=== PATIENT | female | born 1950 | race Caucasian/White ===

== ENCOUNTER 2017-08-26 11:34 | Emergency (ER) | payer MEDICARE ==
--- NOTE | 2017-08-26 11:37 | UC ---
Cardiac HPI - HPI Summary HPI Summary: 67 YEAR OLD FEMALE PRESENTS WITH COMPLAINS OF LEFT CHEST PAIN. - History of Current Complaint Stated Complaint: CHEST PAIN Time Seen by Provider: 08/26/17 11:37 Hx Obtained From: Patient Onset/Duration: Sudden Onset Initial Severity: Moderate Current Severity: Moderate Chest Pain Location: Mid Sternal Aggravating Factor(s): Exertion Alleviating Factor(s): Rest Associated Signs & Symptoms: Positive: Chest Pain - Allergy/Home Medications Allergies/Adverse Reactions: Allergies Allergy/AdvReac Type Severity Reaction Status Date / Time Acetaminophen [From Tylenol] AdvReac GI Upset Verified 08/26/17 11:49 Aspirin AdvReac GI Upset Verified 08/26/17 11:49 Morphine AdvReac Hallucinati Verified 08/26/17 11:49 ons PMH/Surg Hx/FS Hx/Imm Hx Other History Of: Negative For: Anticoagulant Therapy - Surgical History Surgical History: Yes Surgery Procedure, Year, and Place: LUMBAR laminectomy with fusion 1996 - W/ RODS. hysterectomy 1977. tonsillectomy as a child. Rt CARPAL TUNNEL - Family History Known Family History: Positive: None - Social History Alcohol Use: None Substance Use Type: None Smoking Status (MU): Current Some Day Smoker Type: Cigarettes Length of Time of Smoking/Using Tobacco: 50 YRS Have You Smoked in the Last Year: Yes When Did the Patient Quit Smoking/Using Tobacco: 2-3 puffs/day - Immunization History Most Recent Influenza Vaccination: utd Most Recent Tetanus Shot: 2013 Most Recent Pneumonia Vaccination: unknown Review of Systems Constitutional: Negative Skin: Negative Eyes: Negative ENT: Negative Respiratory: Negative Cardiovascular: Chest Pain Gastrointestinal: Negative Genitourinary: Negative Motor: Negative Neurovascular: Negative Musculoskeletal: Negative Neurological: Negative Psychological: Negative All Other Systems Reviewed And Are Negative: Yes Physical Exam Triage Information Reviewed: Yes Eye Exam: Normal ENT Exam: Normal Dental Exam: Normal Neck exam: Normal Neck: Positive: 1 Respiratory Exam: Normal Cardiovascular Exam: Normal Abdominal Exam: Normal Musculoskeletal Exam: Normal Neurological Exam: Normal Psychological Exam: Normal Skin Exam: Normal - Clinical Impression Provider Diagnoses: CHEST PAIN Discharge - Discharge Plan Condition: Stable Disposition: HOME Patient Education Materials: Angina (ED), Chest Pain (ED) Referrals: Hermelindo Juan [Primary Care Provider] - Additional Instructions: PATIENT SUGGESTED TO GO TO ER TO RULE OUT CA. PATIENT WILL DRIVE AND SIGN OUT AMA.
[2017-08-26 11:49] VITALS: BP 150/80
== END 2017-08-26 11:55 | disposition home or self-care (01) ==
LOC: UCEAST 11:34
DX: R07.9 Chest pain, unspecified (principal); Z88.6 Allergy status to analgesic agent; F17.210 Nicotine dependence, cigarettes, uncomplicated
CPT/HCPCS: 93005; 99212; G0463

== ENCOUNTER 2017-08-26 12:22 | Emergency (ER) | payer MEDICARE ==
[2017-08-26 12:28] VITALS: BP 165/92
--- NOTE | 2017-08-26 17:26 | ED ---
Diana Gaxiola SooYoung, scribed for Pedro Worley MD on 08/26/17 at 1252 . HPI Chest Pain - HPI Summary HPI Summary: A 67 y/o F presents to ED referred from [facility] with c/o mid-sternal CP onset this AM around approx 1000. CP described as tightness and woke her from sleep. She states the intensity has decreased since onset and is no longer constant. Associated sx: nausea last night since resolved. Denies SOB, diaphoresis. No prev episodes of similar CP. No aggravating factors. She notes recently breaking two ribs recently that are healing. Longtime, heavy smoker. She is scheduled to see Dr. Paul tomorrow. - History of Current Complaint Chief Complaint: EDChestPainROMI Time Seen by Provider: 08/26/17 12:37 Hx Obtained From: Patient, Family/Environmental Health Technician Onset/Duration: Still Present - but improved Timing: Constant - at onset, Intermittent - currently Current Severity: Mild Pain Intensity: 2 Pain Scale Used: 0-10 Numeric Chest Pain Location: Mid Sternal Character: Tightness Aggravating Factor(s): Nothing Associated Signs and Symptoms: Positive: Nausea. Negative: Shortness of Breath , Diaphoresis - Additional Pertinent History Primary Care Physician: [id number] - Allergy/Home Medications Allergies/Adverse Reactions: Allergies Allergy/AdvReac Type Severity Reaction Status Date / Time Acetaminophen [From Tylenol] AdvReac GI Upset Verified 08/26/17 11:49 Aspirin AdvReac GI Upset Verified 08/26/17 11:49 Morphine AdvReac Hallucinati Verified 08/26/17 11:49 ons PMH/Surg Hx/FS Hx/Imm Hx Previously Healthy: No Endocrine/Hematology History: Reports: Hx Diabetes - INSULIN DEPENDENT Denies: Hx Anticoagulant Therapy, Hx Thyroid Disease Cardiovascular History: Reports: Hx Angina - denies CP at present, Hx Hypertension - ON MEDS Denies: Hx Coronary Artery Disease, Hx Hypercholesterolemia, Hx Myocardial Infarction, Hx Pacemaker/ICD, Hx Valvular Heart Disease - but pt states she has a heart murmur Respiratory History: Reports: Hx Seasonal Allergies, Hx Sleep Apnea - NO CPAP Denies: Hx Asthma, Hx Chronic Obstructive Pulmonary Disease (COPD) GI History: Reports: Hx Irritable Bowel - undiagnosed, Hx Ulcer - HX OF PER PT History: Denies: Hx Renal Disease Musculoskeletal History: Reports: Hx Arthritis, Hx Rheumatoid Arthritis - recent diagnosis, Hx Back Problems, Hx Osteoporosis, Other Musculoskeletal History - SPINA BIFIDA- CERVICAL, S/P LUMER LAMI WITH FUSION 1996 Sensory History: Reports: Hx Contacts or Glasses - GLASSES Denies: Hx Hearing Aid Opthamlomology History: Reports: Hx Contacts or Glasses - GLASSES Neurological History: Reports: Hx Headaches Psychiatric History: Reports: Hx Anxiety, Hx Depression Denies: Hx Panic Disorder - Surgical History Surgery Procedure, Year, and Place: LUMBAR laminectomy with fusion 1996 - W/ RODS. hysterectomy 1977. tonsillectomy as a child. Rt CARPAL TUNNEL Hx Anesthesia Reactions: No Infectious Disease History: No Infectious Disease History: Denies: Hx Clostridium Difficile, Hx Hepatitis, Hx Human Immunodeficiency Virus (HIV), Hx Shingles, Hx Tuberculosis, Traveled Outside the in Last 30 Days - Family History Known Family History: Positive: Cardiac Disease - Social History Occupation: Unemployed - HOMEMAKER Lives: With Family Alcohol Use: None Hx Substance Use: No Substance Use Type: Reports: None Hx Tobacco Use: Yes Smoking Status (MU): Heavy Every Day Tobacco Smoker Type: Cigarettes Amount Used/How Often: 1 1/2 pk/day Length of Time of Smoking/Using Tobacco: 50 YRS Have You Smoked in the Last Year: Yes Review of Systems Negative: Skin Diaphoresis Positive: Chest Pain Negative: Shortness Of Breath Positive: Nausea All Other Systems Reviewed And Are Negative: Yes Physical Exam Triage Information Reviewed: Yes Vital Signs On Initial Exam: Initial Vitals Temp Pulse Resp BP Pulse Ox 97.6 F 90 16 165/92 97 08/26/17 12:24 08/26/17 12:24 08/26/17 12:24 08/26/17 12:24 08/26/17 12:24 Vital Signs Reviewed: Yes Appearance: Positive: Well-Appearing, No Pain Distress Skin: Positive: Warm, Skin Color Reflects Adequate Perfusion, Dry Head/Face: Positive: Normal Head/Face Inspection Eyes: Positive: Normal ENT: Positive: Normal ENT inspection Neck: Positive: Supple, Nontender Respiratory/Lung Sounds: Positive: Clear to Auscultation, Breath Sounds Present. Negative: Wheezes Cardiovascular: Positive: RRR Abdomen Description: Positive: Nontender, Soft Bowel Sounds: Positive: Present Musculoskeletal: Positive: Normal Neurological: Positive: Normal Psychiatric: Positive: Affect/Mood Appropriate Diagnostics - Vital Signs Vital Signs Temp Pulse Resp BP Pulse Ox 08/26/17 12:24 97.6 F 90 16 165/92 97 - Laboratory Lab Statement: Any lab studies that have been ordered have been reviewed, and results considered in the medical decision making process. Chest Pain Course/Dx - Course Course Of Treatment: Ms. Parham was awakened by a mid chest pain this AM about 1000. It has nearly completely resolved on arrival. She had an angry impatient affect from the outset and I recommended a CP workup. At first she agreed but soon after I left the room, she announced that she was leaving and did so abruptly. - Diagnoses Provider Diagnoses: Chest pain Discharge - Discharge Plan Condition: Stable Disposition: ADMITTED TO [facility] Patient Education Materials: Chest Pain (ED) Referrals: Natali HAGEN,Hermelindo Montano [Primary Care Provider] - Additional Instructions: Follow up with Dr. Paul as scheduled tomorrow. Please return to the ED if you experience new or worsening symptoms or decide you want your CP evaluated. The documentation as recorded by the Diana fry SooYoung accurately reflects the service I personally performed and the decisions made by me, Pedro Worley MD.
== END 2017-08-26 13:05 | disposition short-term general hospital (02) ==
LOC: ED 12:22
DX: R07.9 Chest pain, unspecified (principal); E11.8 Type 2 diabetes mellitus with unspecified complications; Z79.4 Long term (current) use of insulin; I10 Essential (primary) hypertension; I20.9 Angina pectoris, unspecified; Q05.9 Spina bifida, unspecified; M06.9 Rheumatoid arthritis, unspecified; F32.9 Major depressive disorder, single episode, unspecified; F41.9 Anxiety disorder, unspecified; F17.210 Nicotine dependence, cigarettes, uncomplicated
CPT/HCPCS: 99281

== ENCOUNTER 2018-01-08 14:11 | Emergency (ER) | payer SELFPAY ==
[2018-01-08 14:49] VITALS: BP 133/67
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
== END 2018-01-08 17:40 | disposition home or self-care (01) ==
LOC: UCEAST 14:11
DX: S16.1XXA Strain of muscle, fascia and tendon at neck level, initial encounter (principal); S10.91XA Abrasion of unspecified part of neck, initial encounter; V43.52XA Car driver injured in collision with other type car in traffic accident, initial encounter; Y93.89 Activity, other specified; Y92.410 Unspecified street and highway as the place of occurrence of the external cause; E78.5 Hyperlipidemia, unspecified; I10 Essential (primary) hypertension; Z88.6 Allergy status to analgesic agent; Z88.5 Allergy status to narcotic agent; F17.210 Nicotine dependence, cigarettes, uncomplicated
CPT/HCPCS: 99212; G0463

== ENCOUNTER 2018-09-09 06:20 | Emergency (ER) | payer MEDICARE ==
[2018-09-09] MEDS ORDERED: NS 0.9% 1000 ML* 1,000 ML IV ONE (06:32)
--- NOTE | 2018-09-09 06:35 | ED ---
Neurological HPI - HPI Summary HPI Summary: Patient is a 68 y/o F BIBA w/ stroke Sx. Provider to evaluate patient immediately upon arrival at 0620. EMS reports that patient woke up at 0330 today screaming and complaining of severe POSADA. Vomiting is denied. EMS reported that patient was uncooperative during the ambulance ride and refused IV access. They also note that patient had slurred speech which has improved in the ED. EMS does not have medications list of patient. Patient states that she feels tired. PMHx of TIA. Allergies are reviewed. - History of Current Complaint Stated Complaint: STROKE LIKE SYMPTOMS Time Seen by Provider: 09/09/18 06:25 Hx Obtained From: Patient Onset/Duration: Started hours ago - onset 0330, Still Present Timing: Constant Onset Severity: Severe Current Severity: Severe Aggravating: Nothing Alleviating: Nothing Associated Signs and Symptoms: Positive: Headache, Confusion, Agitation, Impaired Speech - has gotten better in ED per EMS - Additional Pertinent History Primary Care Physician: MARIANNA - Allergy/Home Medications Allergies/Adverse Reactions: Allergies Allergy/AdvReac Type Severity Reaction Status Date / Time morphine Allergy Headache Verified 01/08/18 14:40 acetaminophen AdvReac GI Upset Verified 01/08/18 14:40 aspirin AdvReac GI Upset Verified 01/08/18 14:40 PMH/Surg Hx/FS Hx/Imm Hx Endocrine/Hematology History: Reports: Hx Diabetes - INSULIN DEPENDENT Denies: Hx Anticoagulant Therapy, Hx Thyroid Disease Cardiovascular History: Reports: Hx Angina - denies CP at present, Hx Hypertension - ON MEDS Denies: Hx Coronary Artery Disease, Hx Hypercholesterolemia, Hx Myocardial Infarction, Hx Pacemaker/ICD, Hx Valvular Heart Disease - but pt states she has a heart murmur Respiratory History: Reports: Hx Seasonal Allergies, Hx Sleep Apnea - NO CPAP Denies: Hx Asthma, Hx Chronic Obstructive Pulmonary Disease (COPD) GI History: Reports: Hx Irritable Bowel - undiagnosed, Hx Ulcer - HX OF PER PT History: Denies: Hx Renal Disease Musculoskeletal History: Reports: Hx Arthritis, Hx Rheumatoid Arthritis - recent diagnosis, Hx Back Problems, Hx Osteoporosis, Other Musculoskeletal History - SPINA BIFIDA- CERVICAL, S/P LUMER LAMI WITH FUSION 1996 Sensory History: Reports: Hx Contacts or Glasses - GLASSES Denies: Hx Hearing Aid Opthamlomology History: Reports: Hx Contacts or Glasses - GLASSES Neurological History: Reports: Hx Headaches Psychiatric History: Reports: Hx Anxiety, Hx Depression Denies: Hx Panic Disorder - Surgical History Surgery Procedure, Year, and Place: LUMBAR laminectomy with fusion 1996 - W/ RODS. hysterectomy 1977. tonsillectomy as a child. Rt CARPAL TUNNEL Hx Anesthesia Reactions: No Infectious Disease History: Denies: Hx Clostridium Difficile, Hx Hepatitis, Hx Human Immunodeficiency Virus (HIV), Hx Shingles, Hx Tuberculosis - Family History Known Family History: Positive: Cardiac Disease - Social History Alcohol Use: None Hx Substance Use: No Substance Use Type: Reports: Prescribed Hx Tobacco Use: Yes Smoking Status (MU): Heavy Every Day Tobacco Smoker Type: Cigarettes Amount Used/How Often: 1 pk/day Length of Time of Smoking/Using Tobacco: 50 YRS Have You Smoked in the Last Year: Yes Review of Systems Positive: Headache, Slurred Speech - reported to have improved in ED Psychological: Other - confusion, agitation All Other Systems Reviewed And Are Negative: Yes Physical Exam - Summary Physical Exam Summary: VITAL SIGNS: Reviewed. GENERAL: Patient is a well-developed and nourished female who is lying comfortable in the stretcher. Patient is not in any acute respiratory distress. HEAD AND FACE: No signs of trauma. No ecchymosis, hematomas or skull depressions. No sinus tenderness. EYES: PERRLA, EOMI x 2, No injected conjunctiva, no nystagmus. EARS: Hearing grossly intact. Ear canals and tympanic membranes are within normal limits. MOUTH: Oropharynx within normal limits. NECK: Supple, trachea is midline, no adenopathy, no JVD, no carotid bruit, no c- spine tenderness, neck with full ROM. CHEST: Symmetric, no tenderness at palpation LUNGS: Clear to auscultation bilaterally. No wheezing or crackles. CVS: Regular rate and rhythm, S1 and S2 present, no murmurs or gallops appreciated. ABDOMEN: Soft, non-tender. No signs of distention. No rebound no guarding, and no masses palpated. Bowel sounds are normal. EXTREMITIES: FROM in all major joints, no edema, no cyanosis or clubbing. NEURO: Patient is alert to her name but disoriented, follows commands. GCS 15. NIH 2 SKIN: Dry and warm Triage Information Reviewed: Yes Vital Signs Reviewed: Yes Diagnostics - Laboratory Lab Statement: Any lab studies that have been ordered have been reviewed, and results considered in the medical decision making process. - CT brain ct CT Interpretation: No Acute Changes CT Interpretation Completed By: Radiologist - IMPRESSION: Study is degraded by motion artifact. What is seen of the brain parenchyma shows no intraparenchymal hemorrhage. No intracranial mass or obstructive hydrocephalus. Suggest repeating the head CT when the patient is able to hold still. This report was reviewed by ed physician. NIH Scale - NIH Scale Level of Consciousness: Alert/Keenly Responsive Ask Patient the Month and His/Her Age: Neither Correct/Aphasic Ask Pt to Open/Close Eyes and Rn Telehealth/Release Non-Paretic Hand: Both Correctly Best Gaze (Only Horizontal Eye Movement): Normal Visual Field Testing: No Visual Loss Facial Paresis-Pt to Smile & Close Eyes or Grimace Symmetry: Normal/Symmetrical Motor Function - Right Arm: No Drift-Holds 10 Seconds Motor Function - Left Arm: No Drift-Holds 10 Seconds Motor Function - Right Leg: No Drift-Holds 10 Seconds Motor Function - Left Leg: No Drift-Holds 10 Seconds Limb Ataxia-Must be out of Proportion to Weakness Present: Absent Sensory (Use Pinprick to Test Arms/Legs/Trunk/Face): Normal Best Language (Describe Picture, Name Items): No Aphasia Dysarthria (Read Several Words): Normal Extinction and Inattention: No Abnormality - patient seems to be agitated, patient knows her name, not answering other questions, however she is able to verbalize but I'm not able to understand and words. Total Score: 2 Re-Evaluation - Re-Evaluation First Eval Re-Evaluation Time: 06:35 Comment: Patient vomited in CT scan. CT shows no acute bleeding. Patient was capable of ambulating. Second Eval Re-Evaluation Time: 06:45 Comment: Patient's family member reports TIA two years ago, another episode in june. Since then, patient has had depression. Sleeps 20+ hours a day, is volatile, arguementive, paranoid. Family reports she was fine last night between [id number]. Patient and patients were reluctant to call ambulance. Course/Dx - Course Course Of Treatment: Patient is a 68 y/o F BIBA w/ stroke Sx. Provider to evaluate patient immediately upon arrival at 0620. EMS reports that patient woke up at 0330 today screaming and complaining of severe POSADA. Vomiting is denied. EMS reported that patient was uncooperative during the ambulance ride and refused IV access. They also note that patient had slurred speech which has improved in the ED. EMS does not have medications list of patient. Patient states that she feels tired. PMHx of TIA. Physical exam showed Patient is alert to her name but disoriented, follows commands. GCS 15. NIH 2. Brain CT showed IMPRESSION: Study is degraded by motion artifact. What is seen of the brain parenchyma shows no intraparenchymal hemorrhage. No intracranial mass or obstructive hydrocephalus. Suggest repeating the head CT when the patient is able to hold still. This report was reviewed by ed physician. 0635 - Patient vomited in CT scan. CT shows no acute bleeding. Patient was capable of ambulating. 0645 - Patient's family member reports TIA two years ago, another episode in june. Since then, patient has had depression. Sleeps 20+ hours a day, is volatile, arguementive, paranoid. Family reports she was fine last night between [id number]. Patient and patients were reluctant to call ambulance. Patient's case was discussed with Dr. Ennis at 0649. He states that patient's Sx appears to be more behavioral as opposed to stroke but still recommends CTA, MRI, and bloodwork. Patient will be signed out to Dr. Olivares pending further workup. Dx of headache, confusion. - Diagnoses Provider Diagnoses: Confusion, Headache During the Visit The Following Alert/Code Occurred: Code [place] - 0623 called - Physician Notifications Discussed Care Of Patient With: Larry Ennis Time Discussed With Above Provider: 06:49 Instructed by Provider To: Other - Patient's case was discussed with Dr. Ennis at 0649. He states that patient's Sx appears to be more behavioral as opposed to stroke but still recommends CTA, MRI, and bloodwork Discharge - Sign-Out/Discharge Documenting (check all that apply): Sign-Out Patient Signing out patient TO: Ketan Olivares Receiving patient FROM: Lisseth Pack - Discharge Plan Referrals: Hermelindo Juan [Primary Care Provider] - - Attestation Statements Document Initiated by Scribe: Yes Documenting Scribe: Irwin Berry Provider For Whom Scribe is Documenting (Include Credential): Lisseth Pack MD Scribe Attestation: Irwin Gaxiola , scribed for Lisseth Pack MD on 09/09/18 at 0703.
[2018-09-09] MEDS ORDERED: Ondansetron INJ* 2 MG/ML VIAL IV ONE (06:38)
[2018-09-09] MEDS ORDERED: Morphine INJ* 4 MG/ML 1 ML SYRINGE (NEW SYRINGE VERSION) IV ONE (06:38)
--- NOTE | 2018-09-09 06:40 | RAD ---
EXAM: CT Head Without Intravenous Contrast CLINICAL HISTORY: 68 years old, female; Signs and symptoms; Altered mental status/memory loss; Patient HX: Best images possible pt unable to hold still; Additional info: H/a TECHNIQUE: Axial computed tomography images of the head/brain without intravenous contrast. All CT scans at this facility use at least one of these dose optimization techniques: automated exposure control; mA and/or kV adjustment per patient size (includes targeted exams where dose is matched to clinical indication); or iterative reconstruction. COMPARISON: BRAIN WO CT BRAIN WO 01/22/2016 5:32 PM FINDINGS: Brain: Unremarkable. No hemorrhage. No significant white matter disease. No edema. Ventricles: No obvious intracranial hemorrhage. No intracranial mass or mass effect. No obstructive hydrocephalus. Bones/joints: Unremarkable. No acute fracture. Soft tissues: Unremarkable. Sinuses: Unremarkable as visualized. No acute sinusitis. Mastoid air cells: Unremarkable as visualized. No mastoid effusion. Other findings: Study is degraded by motion. IMPRESSION: Study is degraded by motion artifact. What is seen of the brain parenchyma shows no intraparenchymal hemorrhage. No intracranial mass or obstructive hydrocephalus. Suggest repeating the head CT when the patient is able to hold still. To contact [facility] with a general question: [facility] - [phone] For direct physician to physician contact: Physician Hotline - [phone] [facility] ([facility] Facility ID #[id number])
[2018-09-09 07:02] LABS: ABS Basophils 0.1 10^3/ul (0-0.2); ABS Eosinophils 0 10^3/ul (0-0.6); ABS Lymphocytes 2.9 10^3/ul (1.0-4.8); ABS Monocytes 0.6 10^3/ul (0-0.8); ABS Neutrophils 11.7 10^3/ul (1.5-7.7); ABS Nucleated RBC 0 10^3/ul; Eosinophil % 0.3 % (0-6); Hematocrit 42 % (35-47); Hemoglobin 14.2 g/dl (12.0-16.0); Lymphocyte % 18.9 % (25-47); Mean Corpuscular HGB Conc 34 g/dl (31-36); Mean Corpuscular Hemoglobin 30 pg (27-31); Mean Corpuscular Volume 89 fL (80-97); Mean Platelet Volume 7.1 um3 (7.4-10.4); Nucleated Red Blood Cells % 0.1; Platelet Count 357 10^3/ul (150-450); Red Cell Distribution Width 13 % (10.5-15); White Blood Count 15.3 10^3/ul (3.5-10.8)
[2018-09-09 07:20] LABS: EGFR Non-African American 66.3 (>60)
[2018-09-09 07:21] LABS: INR 0.89 (0.77-1.02)
[2018-09-09] MEDS ORDERED: Iodixanol* (CONTRAST) 320 MG/ML 100 ML SDV IV ONE (07:35)
--- NOTE | 2018-09-09 07:42 | RAD ---
HISTORY: Neurological Changes/Code [place] COMPARISONS: January 22, 2016 VIEWS: 1: frontal AP view of the chest at 7:18 AM. The right costophrenic angle is cut off. FINDINGS: LINES AND TUBES: None. CARDIOMEDIASTINAL SILHOUETTE: The cardiomediastinal silhouette is normal for portable technique. PLEURA: The left costophrenic angle is sharp. LUNG PARENCHYMA: The visualized lungs are clear. ABDOMEN: The upper abdomen is clear. There is no subphrenic gas. BONES AND SOFT TISSUES: No bone or soft tissue abnormalities are noted. IMPRESSION: LIMITED STUDY. NO ACTIVE CARDIOPULMONARY DISEASE.
--- NOTE | 2018-09-09 08:05 | ED ---
Progress - Progress Note Progress Note: This patient was signed out from Dr. Pack on shift change. On exam the woman is speaking in intelligible sentences. She does not respond appropriately when asked her age or the month. She has expressive aphasia and is combative. There is a emperatriz of her speak and there is rhyming. The nurse spoke to her daughter who has since left and she stated there was a situation like this in june and the pt was taken to [facility]. There was concern for a possible CVA but apparently there was nothing abnormal found, the nurse states the daughter stated it was dx as new onset bipolar. Since this episode in june of this year the patient has been combative per daughter and agitated. Along with this the nurse states the daughter was a poor historian and stated her mother has never had a CVA but has had a thrombectomy in the past, which appears to be contradictory. Appearance: Well appearing, no pain distress Skin: warm, dry, reflects adequate perfusion Head/face: normal Eyes: EOMI, LETTY ENT: mucous membranes moist Neck: supple, non-tender Respiratory: CTA, breath sounds present Cardiovascular: RRR, pulses symmetrical Abdomen: non-tender, soft Bowel Sounds: present Musculoskeletal: normal, strength/ROM intact Neuro: Verbal with clear speech it is difficult to tell if she has aphasia or she is not cooperating. She answers level of consciousness questions with non nonsensical rhyming words. She will say I dont know CXR reveals, per radiology, LIMITED STUDY. NO ACTIVE CARDIOPULMONARY DISEASE. Dr. Olivares has reviewed this report. Re-Evaluation - Re-Evaluation First Eval Re-Evaluation Time: 09:16 Comment: Patient is 200/110 on manual BP. Course/Dx - Course Course Of Treatment: This patient was signed out from Dr. Pack on shift change. On exam the woman is speaking in intelligible sentences. She does not respond appropriately when asked her age or the month. She has expressive aphasia and is combative. There is a emperatriz of her speak and there is rhyming. The nurse spoke to her daughter who has since left and she stated there was a situation like this in june and the pt was taken to [facility]. There was concern for a possible CVA but apparently there was nothing abnormal found, the nurse states the daughter stated it was dx as new onset bipolar. Along with this the nurse states the daughter was a poor historian and stated her mother has never had a CVA but has had a thrombectomy in the past, which appears to be contradictory. I discussed patient care with Dr. Vegas and he will come see the patient in the ED. 0844 I discussed patient care with Dr. Chao who has accepted the patient for admission. The patient required treatment of delirium in order to expedite her imaging studies. Ketamine 1 mg/kg was given. This produced a calming effect with able sedation of her vital signs. Neurology feels as though lumbar puncture is not warranted at this time. The leukocytosis is chronic. She's had similar presentations in the past there is feeling that this may be toxic, metabolic or even withdrawal related. - Diagnoses Provider Diagnoses: Encephalopathy, Leukocytosis During the Visit The Following Alert/Code Occurred: Code [place] - 0623 called - Provider Notifications Discussed Care Of Patient With: Amarjit Sargent Time Discussed With Above Provider: 08:04 Instructed by Provider To: Other - I discussed patient care with Dr. Vegas and he will come see the patient in the ED 0844 I discussed patient care with Dr. Chao who has accepted the patient for admission. - Critical Care Time Critical Care Time: 75-104 min - CCT is EXCLUSIVE of separately billable procedures. Discharge - Sign-Out/Discharge Documenting (check all that apply): Patient Departure - admitted , Receiving Sign-Out [facility]charge Plan Condition: Fair Disposition: ADMITTED TO [facility] - Billing Disposition and Condition Condition: FAIR Disposition: Admitted to [facility] - Attestation Statements Document Initiated by Scribe: Yes Documenting Scribe: Mookie Yañez Provider For Whom Abdone is Documenting (Include Credential): Ketan Olivares MD Scribe Attestation: Mookie Gaxiola, scribed for Ketan Olivares MD on 09/09/18 at 1032. Scribe Documentation Reviewed: Yes Provider Attestation: The documentation as recorded by the Mookie fry accurately reflects the service I personally performed and the decisions made by me, Ketan Olivares MD NIH Scale - NIH Scale Level of Consciousness: Alert/Keenly Responsive Ask Patient the Month and His/Her Age: Neither Correct/Aphasic Ask Pt to Open/Close Eyes and Road Gang Supervisor/Release Non-Paretic Hand: Both Correctly Best Gaze (Only Horizontal Eye Movement): Normal Visual Field Testing: No Visual Loss Facial Paresis-Pt to Smile & Close Eyes or Grimace Symmetry: Normal/Symmetrical Motor Function - Right Arm: No Drift-Holds 10 Seconds Motor Function - Left Arm: No Drift-Holds 10 Seconds Motor Function - Right Leg: No Drift-Holds 10 Seconds Motor Function - Left Leg: No Drift-Holds 10 Seconds Limb Ataxia-Must be out of Proportion to Weakness Present: Absent Sensory (Use Pinprick to Test Arms/Legs/Trunk/Face): Normal Best Language (Describe Picture, Name Items): Severe Aphasia Dysarthria (Read Several Words): Normal Extinction and Inattention: No Abnormality Total Score: 4
[2018-09-09] MEDS ORDERED: Metoclopramide IV* 5 MG/ML 2 ML VIAL IV ONE (09:13)
[2018-09-09] MEDS ORDERED: Ketorolac INJ* 30 MG/ML 1 ML VIAL IV PUSH ONE (09:13)
[2018-09-09] MEDS ORDERED: KETAMINE HCL* 50 MG/ML 10 ML VIAL IV ONE (09:22)
[2018-09-09] MEDS ORDERED: Haloperidol INJ IV/IM* 5 MG/ML AMP IV SLOW PU PRN (09:37)
[2018-09-09] MEDS ORDERED: NS 0.9% 1000 ML* 1,000 ML IV SCH (09:45)
[2018-09-09] MEDS ORDERED: busPIRone TAB* 10 MG PO PRN (09:45)
[2018-09-09] MEDS ORDERED: hydrALAZINE IV* 20 MG/ML VIAL IV SLOW PU PRN (09:46)
[2018-09-09] MEDS ORDERED: Dextrose 50% Syringe 50 ML* 25 GM/50 ML SYRINGE IV PUSH PRN (10:16)
--- NOTE | 2018-09-09 11:21 | RAD ---
HISTORY: CVA COMPARISONS: January 24, 2016, head CT dated September 09, 2018 TECHNIQUE: Multiple contiguous axial CT scans were obtained of the head and neck after the administration of nonionic intravenous contrast timed to the systemic arterial phase of contrast enhancement. Coronal and sagittal multiplanar reformations are submitted for review. Multiple 3-D maximum intensity projection reconstructions are also submitted for review. FINDINGS: CTA NECK: AORTIC ARCH: There is a normal three-vessel branching pattern of the aortic arch. There is no ostial or proximal stenosis of the cephalic great vessels. RIGHT VERTEBRAL ARTERY: The right vertebral artery is patent along its course, without stenosis. LEFT VERTEBRAL ARTERY: The left vertebral artery is patent along its course, without stenosis. DOMINANCE: The left vertebral artery is dominant. RIGHT COMMON CAROTID ARTERY: The right common carotid artery is patent. The right carotid bifurcation occurs at C3-C4 RIGHT INTERNAL CAROTID ARTERY: There is atheromatous disease of the right carotid bifurcation, without right internal carotid artery stenosis by NASCET criteria. RIGHT EXTERNAL CAROTID ARTERY: The right external carotid artery is unremarkable. LEFT COMMON CAROTID ARTERY: The left common carotid artery is patent. The left carotid bifurcation occurs at C4 LEFT INTERNAL CAROTID ARTERY: There is atheromatous disease of the left carotid bifurcation, without left internal carotid artery stenosis by NASCET criteria. LEFT EXTERNAL CAROTID ARTERY: The left external carotid artery is unremarkable. VENOUS CIRCULATION: The venous system is unremarkable. SALIVARY GLANDS: The parotid glands, submandibular glands, sublingual glands are normal. NASAL CAVITY/NASOPHARYNX: The nasal cavity and nasopharynx are normal. ORAL CAVITY/OROPHARYNX: The oral cavity and oropharynx are unremarkable. LARYNGEAL APPARATUS/HYPOPHARYNX: The laryngeal apparatus and hypopharynx are normal. UPPER AIRWAY/UPPER ESOPHAGUS: The visualized upper airway and esophagus are normal. LUNG APICES: The lung apices are clear. THYROID GLAND: The thyroid gland is normal. LYMPH NODES: There is no lymphadenopathy by size criteria. BONES AND SOFT TISSUES: No bone or soft tissue abnormalities are noted. CTA HEAD: INTRACRANIAL CIRCULATION: There is enhancement within M3 branches within the left temporal and parietal hematoma suggestive of a more proximal occlusion with reconstitution, though the occluded segment is not clearly identifiable. The left posterior cerebral artery and its major branches appear patent. Elsewhere, there is no aneurysm, vascular malformation, occlusion, or stenosis of the visualized intracranial circulation. The anterior communicating artery complex is clear. There is a origin of the left posterior cerebral artery. VENOUS CIRCULATION: The venous system is unremarkable. PERFUSION: There is hypoperfusion of the left parietal temporal lobes with reconstitution of vessels with reconstitution of the M3 branches noted within the hematoma. HEMORRHAGE/INFARCT: There is been interval development of an area of hypoattenuation consistent with a parenchymal hematoma within the left parietal and temporal lobes measuring approximately 6 x 3.4 cm transversely and 8.2 cm in cranial caudal dimension. There is probable extension to the left lateral ventricle. There is a fluid fluid level.. Elsewhere, there is no hemorrhage or acute infarct. MASSES/SHIFT: There is subfalcine shift to the right of approximately 1 cm.. There is partial effacement of the basal cisterns. EXTRA-AXIAL SPACES: There are no extra-axial fluid collections. SULCI AND VENTRICLES: As noted above, there is probable extension of the left parenchymal hematoma to the left lateral ventricle. There is no significant ventriculomegaly. CEREBRUM: As noted above, there is a large parenchymal hematoma of the left parietal and temporal lobes. There is associated vasogenic edema. BRAINSTEM: There are no focal parenchymal abnormalities. CEREBELLUM: There are no focal parenchymal abnormalities. PARANASAL SINUSES: The paranasal sinuses are clear. ORBITS: The orbits are unremarkable. BONES AND SOFT TISSUE: No bone or soft tissue abnormalities are noted. OTHER: There is no abnormal enhancement. IMPRESSION: 1. THERE IS A LARGE INTRAPARENCHYMAL HEMATOMA OF THE LEFT PARIETAL AND TEMPORAL LOBES WITH SUBFALCINE SHIFT TO THE RIGHT AND PARTIAL EFFACEMENT OF THE BASAL CISTERNS. 2. THERE ARE RECONSTITUTED VESSELS NOTED WITHIN THE AREA OF HEMATOMA WITH ASSOCIATED HYPOPERFUSION OF THE TERRITORY, THIS SUGGESTS THAT THIS IS HEMORRHAGIC CONVERSION OF AN INFARCT. THERE IS NO APPRECIABLE ANEURYSM OR VASCULAR FORMATION, THOUGH SMALL VASCULAR LESIONS MAY BE OBSCURED BY MASS EFFECT FROM THE HEMATOMA. 3. ATHEROMATOUS DISEASE. 4. NO INTERNAL CAROTID ARTERY STENOSIS BY NASCET CRITERIA. PRELIMINARY FINDINGS WERE DISCUSSED WITH DR. WEBER AT APPROXIMATELY 11:10 AM ON SEPTEMBER 09, 2018 . CPT II Codes: 3100F
[2018-09-09] MEDS ORDERED: Insulin LISPRO* 1 UNITS UNIT SUBCUT SCH (11:30)
[2018-09-09] MEDS ORDERED: Propofol* 200 ML ONE (11:31)
[2018-09-09] MEDS ORDERED: NICARDIPINE 0.1 MG/ML IV ONE (11:31)
[2018-09-09] MEDS ORDERED: IVPREMIX IV ONE (11:31)
[2018-09-09] MEDS ORDERED: Rocuronium* 10 MG/ML VIAL IV ONE (11:37)
[2018-09-09] MEDS ORDERED: Rocuronium* 10 MG/ML VIAL ONE (11:37)
--- NOTE | 2018-09-09 11:47 | PN ---
Progress Note - Progress Note Date of Service: 09/09/18 Note: Since I did the initial H&P the patient had a CTA head that shows a large intraparancheymal hemorrhage with mass effect. Dr. Olivares in the process of intubating the patient and air lifting her to [place].
[2018-09-09] MEDS ORDERED: niCARdipine 0.1MG/ML IVPREMIX* 20 MG/200 ML BAG IV SCH (12:00)
[2018-09-09] MEDS ORDERED: Propofol* 500 MG/50 ML BTL IV SCH (12:00)
[2018-09-09] MEDS ORDERED: Propofol* 100 ML IV SCH (12:06)
[2018-09-09] MEDS ORDERED: HYDROmorphone INJ* 1 MG/ML CARPUJECT SYRINGE IV SLOW PU ONE (12:26)
[2018-09-09] MEDS ORDERED: Mannitol 25% (12.5 GM) 50 ML* 12.5 GM/50 ML VIAL IV ONE (12:26)
--- NOTE | 2018-09-09 12:26 | RAD ---
INDICATION: Intubation. COMPARISON: Comparison is made with prior study of the same date from approximately 4 hours earlier. TECHNIQUE: A portable view of the chest was obtained. FINDINGS: The patient is status post intubation. The endotracheal tube projects over the midline approximately 2 cm above the mello. There is a nasogastric tube present which demonstrates normal course. The heart is within normal limits in size. The lungs are clear. No pleural effusion is seen. IMPRESSION: STATUS POST INTUBATION AND NASOGASTRIC TUBE PLACEMENT.
[2018-09-09] MEDS ORDERED: HYDROmorphone INJ1* 1 MG/ML SYRINGE ONE (12:34)
[2018-09-09] MEDS ORDERED: HYDROmorphone INJ1* 1 MG/ML SYRINGE IV SLOW PU ONE (12:36)
[2018-09-09] MEDS ORDERED: Sodium Chloride 3% HYPERTONIC* 500 ML IVPB ONE (12:45)
--- NOTE | 2018-09-09 12:47 | CONS ---
ADDENDUM NOW INCLUDED ON THIS REPORT CONSULTATION REPORT: DATE OF CONSULT: 09/09/18 LOCATION: She is in the emergency room. REFERRING PHYSICIAN: Dr. Olivares. REASON FOR CONSULT: Chief complaint: Headache and confusion. HISTORY OF PRESENT ILLNESS: Pebbles Parham is a 68-year-old woman brought in to the emergency room early this morning with change in mental status and complaints of headache. History is from Dr. Liriano, who received sign out from Dr. Pack. There are no other family members or sources of information currently available other than prior records. Most pertinent is a hospitalization in 2016, when she presented with headache and difficulty speaking and confusion. According to the emergency room admission note, she was not speaking appropriately and was combative when she came in. Apparently one of the nurses spoke to her daughter earlier, who said that she had a similar episode earlier this year and was taken to [facility]. According to that emergency room note, she was diagnosed as having new onset bipolar disorder. Since the episode in June, patient has been combative. Her blood pressure on manual BP was 200/110 according to the initial emergency room doctor's note. Initially when I was trying to get some history from the patient, she would say, I do no think so in regard to headache, but then later on was screaming and holding her head and had vomited. Looking at her prior evaluations, she was in the hospital on 01/23/16, when she presented with headaches and what seemed to aphasia or confusion. She was seen by Dr. Bryant Perea in neurological consultation. She has a chronically elevated white blood cell count and had seen Dr. Roberts in rheumatological consultation. During that hospitalization, she had an MRI of the brain, which revealed patchy white matter disease. I reviewed it, it is nonspecific and there are no juxtacortical nor infratentorial lesions, so it looks more like chronic ischemic disease to me. She has chronic pain and is on chronic oxycodone therapy for postoperative and chronic lumbar pain. Of interest is that the discharge summary, she was complaining bitterly and apparently was verbally abusive to the healthcare providers complaining that her pain was not adequately treated when she was discharged in 2016. She had had a temporal artery biopsy on 01/25/16, which was interpreted as normal. PAST MEDICAL HISTORY: Otherwise notable for: 1. Ongoing tobacco dependence. 2. Diabetes. 3. Carpal tunnel release. 4. Chronic back pain. MEDICATIONS FROM HOME: Currently listed in the EMR include oxycodone 10 mg p.o. q.4 hours as needed, atorvastatin 80 mg p.o. daily, but also simvastatin is listed at 40 p.o. daily, duloxetine 60 mg p.o. daily, lisinopril 40 mg p.o. daily, Plavix 75 mg p.o. daily, buspirone 10 mg p.o. t.i.d., Humalog insulin, exenatide microspheres 2 mg subcutaneous weekly, gabapentin 300 mg p.o. b.i.d., magnesium oxide 250 mg p.o. daily. Medications that she has received here include morphine 4 mg IV once at 0630 hours, Zofran IV 8 mg once at the same time, and no other medicines administered so far. ALLERGIES: She is listed as having adverse reaction to ASPIRIN and ACETAMINOPHEN causing GI upset, MORPHINE causing headache. REVIEW OF SYSTEMS: Unreliable. The patient initially denies headaches and then says "I don't know." She said she did sleep last night, denies GI problems , denies recent chills or fevers. Again, I cannot consider her responses reliable due to her current cognitive state. PHYSICAL EXAM: She is an obese woman who is initially somewhat lethargic and restless. She intermittently sleeps. Later on, she becomes extremely agitated and holds her head and is apparently trying to swear at the staff and fighting against having her blood pressure checked. Her vital signs recorded in the computer so far 140/107 at 0700 this morning, 200/110 was listed as a manual blood pressure in the initial presentation. Heart rates in the 80s, respiratory rate 24, oxygen saturation is 99% on room air. Heart is in a regular rhythm. Hard to hear lung sounds, but when she is quiet, I do not hear any abnormalities. Her neck is supple. There are no cervical bruits. Oral mucosa is a little dry, but I do not see any oral trauma. There is no head trauma either. When she is calmer, on neurological exam, her pupils are about 4 mm and react consensually to light to 2.5 mm. I was able to briefly see her left optic disk and it looks to be relatively sharp. I did not get good views, however. She seems to have good response to visual threat bilaterally. She makes good eye contact when she is alert. I cannot otherwise get a good assessment of her visual montanez. Facial musculature is symmetric. Facial sensation in response to a nasal hand picker with cotton is symmetric. Her voice is loud and at times she speaks a clear sentence, but at other times she mumbles incoherently. Motor exam reveals she is strong in all four limbs, I don't detect any rigidity or spasticity in the limbs. There is no myoclonus or asterixes noted. Reflexes are hard to assess, I think she has bilateral Babinski sign. I was able to get a brief manual blood pressure and it was at least 210 systolic over 110 diastolic, although she was extremely agitated and it was a quick assessment. Mental Status: Describes her to initially be somewhat somnolent, but restless and agitated. Later, she became hypervigilant and was trying to get up the stretcher complaining of a bad headache. She follows some commands but not reliably. DIAGNOSTIC STUDIES/LAB DATA: Laboratory data includes a CBC with elevated white blood cell count at 15.3. However, she has a chronically elevated white blood cell count going back at least 2011. Automated differential is unremarkable. Her INR and PTT are within normal limits. Back in 2016, she had negative lupus anticoagulant assessment. Chemistry is notable for a glucose of 256 this morning, hemoglobin A1c on was 8.9%. She has normal lactic acid and liver enzymes today. Electrolytes are otherwise unremarkable. She had low TSH back in 2016 at 0.16. Free T4 was normal at 0.92. Cholesterol done early this morning was 171, LDL 85. Toxicology negative for aspirin and acetaminophen. There is no urinalysis yet. Older labs are notable for negative rheumatoid factor, CCP, IgG, negative VIVIENNE, negative antibodies for scleroderma, RNA polymerase and anticentromere antibodies. IMPRESSION: Agitated delirium with headache. RECOMMENDATIONS: It sounds that she has done this at least once if not multiple times before. She has a chronic leukocytosis, so I do not think this is a central nervous system infection, also given the apparent recurrent nature of it. Her blood pressure is quite elevated and needs to be treated. I also recommend treating her headache with antiemetics and possibly Toradol if her blood pressure is controlled better. She should have repeat MRI scan, an EEG and depending upon her clinical course, possibly a lumbar puncture. First, I think we need to get her calm down and get her blood pressure down. I have put in some additional orders including an oxycodone level, carbon monoxide level and TSH. I will follow her along with you. ADDENDUM: DATE: 09/09/18 LOCATION: She is in emergency room, bed 6. INTERVAL HISTORY: Since I last saw Ms. Parham, she went to get a CT angiogram of the brain and reveals a large left hemisphere hemorrhage. She is currently being intubated. Dr. Olivares spoke to the neurosurgical coverage, who recommended transfer to the [facility]. I reviewed the CTA images and there is a very large left hemisphere parenchymal bleed with left to right shift. The interpretation by Dr. Valadez, our neuroradiologist is there is a large intraparenchymal hematoma in the left parietal and temporal lobes with subfalcine shift to the right and partial effacement of the basal cisterns. There are reconstituted vessels noted within the area of hematoma with associated hypoperfusion of the territory, this suggested this is hemorrhagic conversion of an infarct. There is no appreciable aneurysm or vascular formation, though small vascular lesions may be obscured by mass effect from the hematoma. There is no internal carotid stenosis by NASCET criteria. I reviewed her brain CT from 0623 hours earlier today when she came in and I did not see evidence of a hemorrhage. Some of the apical views are obscured by motion artifact. Also, she had a CT angiogram of the brain on 01/24/16 when she presented with similar features, which did not show evidence of an aneurysm. She had a brain MRI that same date, which revealed multiple T2 signal abnormalities consistent with subcortical white matter disease, but again there were no vascular malformations or acute infarctions noted. At this point, she is in extremis and I suspect she will not survive unless she has very aggressive neurosurgical approach. She is being appropriately transferred to the [facility] after intubation. Dr. Chao has been communicating with her daughter and updating her. [id number] #: [id number] #: [id number] ALIZA
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
[2018-09-09 13:20] VITALS: BP 141/65
--- NOTE | 2018-09-09 13:36 | CONS ---
CONSULTATION REPORT: DATE OF CONSULT: ADDENDUM: LOCATION: She is in emergency room, bed 6. INTERVAL HISTORY: Since I last saw Ms. Parham, she went to get a CT angiogram of the brain and reveals a large left hemisphere hemorrhage. She is currently being intubated. Dr. Olivares spoke to the neurosurgical coverage, who recommended transfer to the [facility]. I reviewed the CTA images and there is a very large left hemisphere parenchymal bleed with left to right shift. The interpretation by Dr. Valadez, our neuroradiologist is there is a large intraparenchymal hematoma in the left parietal and temporal lobes with subfalcine shift to the right and partial effacement of the basal cisterns. There are reconstituted vessels noted within the area of hematoma with associated hypoperfusion of the territory, this suggested this is hemorrhagic conversion of an infarct. There is no appreciable aneurysm or vascular formation, though small vascular lesions may be obscured by mass effect from the hematoma. There is no internal carotid stenosis by NASCET criteria. I reviewed her brain CT from 0623 hours earlier today when she came in and I did not see evidence of a hemorrhage. Some of the apical views are obscured by motion artifact. Also, she had a CT angiogram of the brain on 01/24/16 when she presented with similar features, which did not show evidence of an aneurysm. She had a brain MRI that same date, which revealed multiple T2 signal abnormalities consistent with subcortical white matter disease, but again there were no vascular malformations or acute infarctions noted. At this point, she is in extremis and I suspect she will not survive unless she has very aggressive neurosurgical approach. She is being appropriately transferred to the [facility] after intubation. Dr. Chao has been communicating with her daughter and updating her. [id number]/[facility] #: [id number] [facility]
[2018-09-09] MEDS ORDERED: Heparin VIAL(*) 5000 UNITS/ML VIAL (FIVE THOUSAND) SUBCUT SCH (14:00)
[2018-09-09] MEDS ORDERED: Insulin GLARGINE(*) 1 UNITS UNIT SUBCUT SCH (21:00)
[2018-09-09] MEDS ORDERED: Gabapentin CAP(*) 300 MG PO SCH (21:00)
[2018-09-10] MEDS ORDERED: Lisinopril TAB* 10 MG PO SCH (09:00)
[2018-09-10] MEDS ORDERED: Clopidogrel TAB* 75 MG PO SCH (09:00)
[2018-09-10] MEDS ORDERED: DULoxetine DR CAP* 60 MG CAP.DR PO SCH (09:00)
[2018-09-10] MEDS ORDERED: Atorvastatin* 80 MG TAB PO SCH (09:00)
[2018-09-10] MEDS ORDERED: NON FORMULARY MED* (Magnesium Oxide [Magnesium] 250 MG) PO SCH (09:00)
== END 2018-09-09 13:22 | disposition short-term general hospital (02) ==
LOC: ED 06:20 → MEDTELE 10:19 → UNDOADMIN 10:19 → ED 13:22
DX: I61.4 Nontraumatic intracerebral hemorrhage in cerebellum (principal); G93.40 Encephalopathy, unspecified; D72.829 Elevated white blood cell count, unspecified; R51 Headache; I10 Essential (primary) hypertension; F17.210 Nicotine dependence, cigarettes, uncomplicated; E11.9 Type 2 diabetes mellitus without complications; Z79.4 Long term (current) use of insulin; R41.0 Disorientation, unspecified
CPT/HCPCS: 36415; 70450; 70496; 70498; 71045; 80053; 80061; 80329; 82375; 82803; 83605; 83735; 84439; 84443; 84479; 84484; 85025; 85610; 85652; 85730; 86140; 86376; 86618; 86800; 93005; 96374; 96375; 96376; 99285; A9270-GY; G0480; J1170; J1885; J2150; J2270; J2405; J2704; J2765; Q9967

== ENCOUNTER 2022-07-24 21:26 | Observation (INO) ==
[2022-07-24] MEDS ORDERED: NS 0.9% 1000 ml BAG 1,000 ML IV ONE (22:17)
[2022-07-24 22:53] LABS: ABS Basophils 0.1 10^3/ul (0-0.2); ABS Eosinophils 0.1 10^3/ul (0-0.6); ABS Lymphocytes 2.5 10^3/ul (1.0-4.8); ABS Monocytes 0.9 10^3/ul (0-0.8); ABS Neutrophils 14.1 10^3/ul (1.5-7.7); Eosinophil % 0.7 %; Hematocrit 33 % (35-47); Hemoglobin 10.9 g/dL (12.0-16.0); Mean Corpuscular HGB Conc 33 g/dL (31-36); Mean Corpuscular Hemoglobin 27 pg (27-31); Mean Corpuscular Volume 82 fL (80-97); Mean Platelet Volume 7.5 fL (7.4-10.4); Platelet Count 571 10^3/uL (150-450); Red Blood Count 4.06 10^6 /uL (3.70-4.87); Red Cell Distribution Width 15 % (10-15); White Blood Count 17.7 10^3/uL (3.5-10.8)
[2022-07-24 23:06] LABS: Urine Appearance Clear; Urine Bilirubin Negative (Negative); Urine Blood Negative (Negative); Urine Color Yellow; Urine Glucose Negative (Negative); Urine Ketones Negative (Negative); Urine Specific Gravity <=1.005 (1.005-1.030)
[2022-07-24 23:07] LABS: Urine Nitrite Negative (Negative); Urine Protein Negative (Negative); Urine Urobilinogen 0.2 (Negative) (Negative); Urine pH 6.5 (5.0-9.0)
[2022-07-24 23:19] LABS: Urine Bacteria Absent (Absent); Urine Red Blood Cell Trace(0-2/hpf) (Absent); Urine Squamous Epithelial Cell Present (Absent); Urine White Blood Cell 2+(11-20/hpf) (Absent)
[2022-07-24 23:30] LABS: Albumin/Globulin Ratio 1.2 (1-3); Calcium 10.5 mg/dL (8.6-10.3); Globulin 3.3 g/dL (2-4); Potassium 4.5 mmol/L (3.5-5.0); Total Bilirubin 0.5 mg/dL (0.2-1.0); Total Protein 7.3 g/dL (6.4-8.9)
[2022-07-25 00:16] LABS: eGFR CKD-EPI 75.5 (>60)
[2022-07-25] MEDS ORDERED: Iodixanol (CONTRAST) 320 MG/ML 100 ML SDV IV ONE (00:19)
[2022-07-25] MEDS ORDERED: Cefepime 1 GM in Dextrose 1 GM/50 ML BAG IV ONE (02:45)
[2022-07-25] MEDS ORDERED: NON FORMULARY MED (Acetaminophen [Tylenol Extra Strength] 500 mg Tablet) FEED TUBE PRN (09:44)
[2022-07-25] MEDS ORDERED: Magnesium CITRATE LIQ 300 ML BTL FEED TUBE PRN (09:47)
[2022-07-25] MEDS ORDERED: Dextrose 25% PED SYRINGE 10ml IV PRN (10:13)
[2022-07-25] MEDS: Enoxaparin 40 MG/0.4 ML SYR SUBCUT SCH (11:05)
[2022-07-25] MEDS: Patiromer POWDER 8.4 GM PAK PO SCH (11:06)
[2022-07-25] MEDS ORDERED: NS 0.9% 1000 ml BAG 1,000 ML IV ONE (14:38)
[2022-07-25] MEDS ORDERED: Ondansetron ODT 4 mg TAB 4 MG TAB PO PRN (18:09)
[2022-07-25] MEDS: Nystatin TOP POWDER 15 GM BTL TOPICAL SCH (21:33)
[2022-07-25] MEDS: CMCS: Ketoconazole 2 % CREAM (NF) 30 GM TUBE TOPICAL SCH ×2 (21:34→22:01)
[2022-07-25] MEDS: Insulin GLARGINE 100 un/ml 10 ml VIAL SUBCUT SCH (21:52)
[2022-07-25] MEDS: NFT: Mirabegron 25 mg ER TAB (NF) PO SCH (21:53)
[2022-07-26 05:05] LABS: ABS Eosinophils 0.2 10^3/ul (0-0.6); ABS Lymphocytes 2.1 10^3/ul (1.0-4.8); ABS Monocytes 0.8 10^3/ul (0-0.8); ABS Neutrophils 8.4 10^3/ul (1.5-7.7); Eosinophil % 1.4 %; Hematocrit 30 % (35-47); Hemoglobin 9.8 g/dL (12.0-16.0); Lymphocyte % 18.1 %; Mean Corpuscular HGB Conc 33 g/dL (31-36); Mean Corpuscular Hemoglobin 28 pg (27-31); Mean Corpuscular Volume 83 fL (80-97); Mean Platelet Volume 7.6 fL (7.4-10.4); Platelet Count 500 10^3/uL (150-450); Red Blood Count 3.57 10^6 /uL (3.70-4.87); Red Cell Distribution Width 15 % (10-15); White Blood Count 11.4 10^3/uL (3.5-10.8)
[2022-07-26 05:23] LABS: Albumin 3.8 g/dL (3.2-5.2); Albumin/Globulin Ratio 1.3 (1-3); Calcium 9.6 mg/dL (8.6-10.3); Total Bilirubin 0.3 mg/dL (0.2-1.0); Total Protein 6.8 g/dL (6.4-8.9); eGFR CKD-EPI 74.4 (>60)
[2022-07-26] MEDS: Enoxaparin 40 MG/0.4 ML SYR SUBCUT SCH (10:00)
[2022-07-26] MEDS: CMCS: Ketoconazole 2 % CREAM (NF) 30 GM TUBE TOPICAL SCH ×2 (10:00→22:36)
[2022-07-26] MEDS: Nystatin TOP POWDER 15 GM BTL TOPICAL SCH ×2 (10:00→21:58)
[2022-07-26] MEDS: Patiromer POWDER 8.4 GM PAK PO SCH (11:27)
[2022-07-26] MEDS ORDERED: Piperacillin/Tazobac ADVAN 3.375 GM in NS 0.9% 100 ml BAG 100 ML IV ONE (13:30)
[2022-07-26] MEDS ORDERED: Zosyn per Pharmacy NOTE FOLLOW UP SCH (14:00)
[2022-07-26] MEDS ORDERED: Dextrose 50% Syringe 50 ml 25 GM/50 ML SYRINGE IV PUSH PRN (17:24)
[2022-07-26] MEDS: ZOSYN 3.375 GM Q8H per EXTENDED INFUSION IV SCH (18:18)
[2022-07-26] MEDS: Insulin GLARGINE 100 un/ml 10 ml VIAL SUBCUT SCH (21:58)
[2022-07-26] MEDS: NFT: Mirabegron 25 mg ER TAB (NF) PO SCH (22:03)
[2022-07-27] MEDS: ZOSYN 3.375 GM Q8H per EXTENDED INFUSION IV SCH ×2 (01:54→11:55)
[2022-07-27 06:06] LABS: ABS Basophils 0.1 10^3/ul (0-0.2); ABS Eosinophils 0.3 10^3/ul (0-0.6); ABS Lymphocytes 2.2 10^3/ul (1.0-4.8); ABS Monocytes 0.8 10^3/ul (0-0.8); ABS Neutrophils 6.5 10^3/ul (1.5-7.7); Eosinophil % 2.6 %; Hematocrit 29 % (35-47); Hemoglobin 9.6 g/dL (12.0-16.0); Lymphocyte % 22.4 %; Mean Corpuscular HGB Conc 34 g/dL (31-36); Mean Corpuscular Hemoglobin 28 pg (27-31); Mean Corpuscular Volume 83 fL (80-97); Mean Platelet Volume 7.6 fL (7.4-10.4); Platelet Count 449 10^3/uL (150-450); Red Blood Count 3.44 10^6 /uL (3.70-4.87); Red Cell Distribution Width 15 % (10-15); White Blood Count 9.7 10^3/uL (3.5-10.8)
[2022-07-27 06:51] LABS: Calcium 9.2 mg/dL (8.6-10.3); Magnesium 1.8 mg/dL (1.9-2.7); Potassium 4.1 mmol/L (3.5-5.0); eGFR CKD-EPI 68.4 (>60)
[2022-07-27] MEDS ORDERED: Magnesium Sulfate 2 gm BAG 2 GM/50 ML BAG IVPB ONE (07:17)
[2022-07-27] MEDS: Enoxaparin 40 MG/0.4 ML SYR SUBCUT SCH (10:50)
[2022-07-27] MEDS: Patiromer POWDER 8.4 GM PAK PO SCH (10:56)
[2022-07-27] MEDS: Nystatin TOP POWDER 15 GM BTL TOPICAL SCH (10:57)
[2022-07-27] MEDS: CMCS: Ketoconazole 2 % CREAM (NF) 30 GM TUBE TOPICAL SCH (10:58)
[2022-07-27 11:48] VITALS: BP 150/62
[2022-07-27] MEDS ORDERED: Lansoprazole SUSP ORALSYR 3 MG/ML PEG TUBE SCH (12:00)
[2022-07-27] MEDS ORDERED: levETIRAcetam LIQ 500 MG/5 ML UDC PO SCH (12:00)
== END 2022-07-27 13:45 | disposition home or self-care (01) ==
LOC: ED 21:26 → EDHOLD 21:26 → SUATTDRO 07-25 09:29 → EDHOLD 07-25 16:42 → MED 07-25 17:12
PROVIDERS: ADMIT Hospitalist; ATTEND Student in an Organized Health Care Education/Training Program

== ENCOUNTER 2023-05-30 18:32 | Observation (INO) ==
[2023-05-30] MEDS ORDERED: NS 0.9% 1000 ml BAG 1,000 ML IV ONE (20:03)
[2023-05-30 21:03] LABS: ABS Basophils 0.1 10^3/uL (0.0-0.1); ABS Eosinophils 0.3 10^3/uL (0.0-0.5); ABS Lymphocytes 2.5 10^3/uL (1.0-4.8); ABS Monocytes 0.7 10^3/uL (0.0-0.9); ABS Neutrophils 9.4 10^3/uL (1.5-7.6); ABS Nucleated RBC 0.01 10^3/ul; Eosinophil % 2.5 %; Hematocrit 41.9 % (35-45); Lymphocyte % 19.2 %; Mean Corpuscular Hemoglobin 27.7 pg (27-33); Mean Corpuscular Hgb Conc 33.5 g/dL (31-36); Mean Corpuscular Volume 82.7 fL (80-97); Mean Platelet Volume 7.3 fL (7.5-11.2); Nucleated Red Blood Cells % 0.1 /100 WBC (0.0-0.4); Platelet Count 405 10^3/uL (150-450); Red Blood Count 5.07 10^6/uL (3.63-4.92); Red Cell Distribution Width 15.1 % (12-17)
[2023-05-30 21:21] LABS: Albumin 4.5 g/dL (3.2-5.2); Albumin/Globulin Ratio 1.2 (1-3); C Reactive Protein 9.98 mg/L (<8.01); Calcium 11.2 mg/dL (8.6-10.3); Creatinine, Serum 0.78 mg/dL (0.51-0.95); Globulin 3.7 g/dL (2-4); Magnesium 2.1 mg/dL (1.9-2.7); Potassium 4.1 mmol/L (3.5-5.0); Total Bilirubin 0.3 mg/dL (0.2-1.0); Total Protein 8.2 g/dL (6.4-8.9); eGFR CKD-EPI 80.1 (>60)
[2023-05-30 21:27] LABS: INR 0.98 (0.88-1.18)
[2023-05-30 21:28] LABS: Urine Appearance Turbid; Urine Bilirubin Negative (Negative); Urine Blood Negative (Negative); Urine Color Yellow; Urine Glucose Negative (Negative); Urine Ketones Negative (Negative); Urine Nitrite Negative (Negative); Urine Protein 1+(30 mg/dL) (Negative); Urine Specific Gravity 1.008 (1.002-1.030); Urine Urobilinogen Negative (Negative)
[2023-05-30 21:36] LABS: Urine Amorphous Crystals Present (Absent); Urine Bacteria 1+ (Absent); Urine Red Blood Cell Absent (Absent); Urine Squamous Epithelial Cell Present (Absent); Urine White Blood Cell 3+(>20/hpf) (Absent); Urine Yeast Present (Absent)
[2023-05-30] MEDS ORDERED: Iodixanol (CONTRAST) 320 MG/ML 100 ML SDV IV ONE (21:54)
[2023-05-30] MEDS ORDERED: Cefepime 1 GM in Dextrose 1 GM/50 ML BAG IV ONE (22:33)
[2023-05-30] MEDS ORDERED: Dextrose 50% Syringe 50 ml 25 GM/50 ML SYRINGE IV PUSH PRN (23:19)
[2023-05-31] MEDS ORDERED: Albuterol 2.5mg/3 ml (0.083%) NEB.SOLN INH PRN (00:16)
[2023-05-31] MEDS ORDERED: Enoxaparin 40 MG/0.4 ML SYR SUBCUT SCH (02:00)
[2023-05-31] MEDS: Lansoprazole SUSP ORALSYR 3 MG/ML PO SCH ×2 (03:35→08:53)
[2023-05-31 07:51] LABS: ABS Basophils 0.1 10^3/uL (0.0-0.1); ABS Eosinophils 0.2 10^3/uL (0.0-0.5); ABS Lymphocytes 2.3 10^3/uL (1.0-4.8); ABS Monocytes 0.7 10^3/uL (0.0-0.9); ABS Neutrophils 9.8 10^3/uL (1.5-7.6); Eosinophil % 1.8 %; Hematocrit 37.4 % (35-45); Hemoglobin 12.7 g/dL (11.5-14.3); Lymphocyte % 17.2 %; Mean Corpuscular Hemoglobin 28.4 pg (27-33); Mean Corpuscular Hgb Conc 34.1 g/dL (31-36); Mean Corpuscular Volume 83.3 fL (80-97); Mean Platelet Volume 7.3 fL (7.5-11.2); Platelet Count 381 10^3/uL (150-450); Red Blood Count 4.49 10^6/uL (3.63-4.92); Red Cell Distribution Width 15.2 % (12-17); White Blood Count 13.1 10^3/uL (3.8-11.8)
[2023-05-31 07:58] LABS: Calcium 10.1 mg/dL (8.6-10.3); Potassium 3.7 mmol/L (3.5-5.0)
[2023-05-31 08:04] LABS: Creatinine, Serum 0.78 mg/dL (0.51-0.95); eGFR CKD-EPI 80.1 (>60)
[2023-05-31] MEDS ORDERED: Potassium Chlor 20 meq TAB.ER PO ONE (08:23)
[2023-05-31] MEDS ORDERED: Patiromer POWDER 8.4 GM PAK PO SCH (09:00)
[2023-05-31] MEDS ORDERED: levETIRAcetam 500 MG IVPREMIX 500 MG/100 ML BAG IV SCH (10:00)
[2023-05-31] MEDS ORDERED: Cefepime 1 GM in Dextrose 1 GM/50 ML BAG IV SCH (12:00)
[2023-05-31 13:46] LABS: C Reactive Protein 10.39 mg/L (<8.01)
[2023-05-31 18:49] VITALS: BP 149/70
[2023-05-31] MEDS ORDERED: CMCS: Mirabegron 25 mg ER TAB (NF) PO SCH (21:00)
== END 2023-05-31 13:35 | disposition home or self-care (01) ==
LOC: ED 18:32 → EDHOLD 18:32
PROVIDERS: ADMIT Student in an Organized Health Care Education/Training Program; ATTEND Student in an Organized Health Care Education/Training Program

== ENCOUNTER 2023-10-23 16:57 | Inpatient (IN) ==
[2023-10-23 18:00] LABS: ABS Basophils 0.1 10^3/uL (0.0-0.1); ABS Eosinophils 0.3 10^3/uL (0.0-0.5); ABS Lymphocytes 2.4 10^3/uL (1.0-4.8); ABS Neutrophils 10.2 10^3/uL (1.5-7.6); ABS Nucleated RBC 0.03 10^3/ul; Eosinophil % 2.3 %; Hematocrit 41.6 % (35-45); Hemoglobin 14.3 g/dL (11.5-14.3); Lymphocyte % 17.3 %; Mean Corpuscular Hemoglobin 28.3 pg (27-33); Mean Corpuscular Hgb Conc 34.3 g/dL (31-36); Mean Corpuscular Volume 82.4 fL (80-97); Mean Platelet Volume 7.6 fL (7.5-11.2); Nucleated Red Blood Cells % 0.2 %/100WBC (0.0-0.8); Platelet Count 369 10^3/uL (150-450); Red Blood Count 5.05 10^6/uL (3.63-4.92); Red Cell Distribution Width 14.4 % (12-17)
[2023-10-23 18:08] LABS: Urine Appearance Turbid; Urine Bilirubin Negative (Negative); Urine Blood 1+ (Negative); Urine Color Yellow; Urine Glucose Negative (Negative); Urine Ketones Negative (Negative); Urine Nitrite Negative (Negative); Urine Protein 1+(30 mg/dL) (Negative); Urine Specific Gravity 1.006 (1.002-1.030); Urine Urobilinogen Negative (Negative)
[2023-10-23 18:25] LABS: Urine Bacteria 3+ (Absent); Urine Red Blood Cell 3+(>10/hpf) (Absent); Urine White Blood Cell 3+(>20/hpf) (Absent)
[2023-10-23 18:29] LABS: ALT 25 U/L (7-52); AST 25 U/L (13-39); Albumin 4.4 g/dL (3.2-5.2); Albumin/Globulin Ratio 1.2 (1-3); Alkaline Phosphatase 107 U/L (35-149); Anion Gap 14 mmol/L (2-16); Blood Urea Nitrogen 39 mg/dL (6-24); CO2 Carbon Dioxide 32 mmol/L (22-32); Calcium 11.2 mg/dL (8.6-10.3); Chloride 91 mmol/L (101-111); Creatinine, Serum 0.79 mg/dL (0.51-0.95); Globulin 3.8 g/dL (2-4); Glucose 169 mg/dL (70-100); Sodium 137 mmol/L (135-145); Total Bilirubin 0.4 mg/dL (0.2-1.0); Total Protein 8.2 g/dL (6.4-8.9); eGFR CKD-EPI 78.4 (>60)
[2023-10-23 18:33] LABS: High Sens Troponin Baseline 11 pg/mL (<15)
[2023-10-23 18:48] LABS: Alcohol, S < 13 mg/dL (<13)
[2023-10-23 19:30] LABS: High Sensitivity Troponin 1 Hr 9 pg/mL (<15)
[2023-10-23] MEDS ORDERED: Lactated Ringers 1000 ml BAG 1,000 ML IV ONE (22:23)
[2023-10-23] MEDS ORDERED: Dextrose 50% Syringe 50 ml 25 GM/50 ML SYRINGE IV PUSH PRN (22:52)
[2023-10-23] MEDS ORDERED: Albuterol 2.5mg/3 ml (0.083%) NEB.SOLN INH PRN (22:53)
[2023-10-23] MEDS: Cefepime 2 GM in Dextrose 2 GM/50 ML BAG IV SCH (23:18)
[2023-10-23] MEDS: Enoxaparin 40 MG/0.4 ML SYR SUBCUT SCH (23:19)
[2023-10-23] MEDS: KCL 20 MEQ/100 ML IVPREMIX 20 MEQ/100 ML BAG IV SCH (23:35)
[2023-10-24] MEDS: Metoprolol Tartrate 5 mg VIAL 5 ml VIAL (1 mg/ml) IV SCH ×3 (00:41→12:39)
[2023-10-24] MEDS: Pantoprazole VIAL 40 MG VIAL IV SCH ×2 (00:42→23:42)
[2023-10-24] MEDS: CMCS:Mirabegron 25 mg ER TAB (NF) PO SCH ×2 (02:31→21:07)
[2023-10-24] MEDS: KCL 20 MEQ/100 ML IVPREMIX 20 MEQ/100 ML BAG IV SCH ×3 (03:04→10:27)
[2023-10-24] MEDS: levETIRAcetam 500 MG IVPREMIX 500 MG/100 ML BAG IV SCH ×2 (03:34→12:26)
[2023-10-24] MEDS ORDERED: Lactated Ringers 1000 ml BAG 1,000 ML IV ONE (04:34)
[2023-10-24] MEDS ORDERED: Lactated Ringers SEPSIS* BAG 1,500 ML IV ONE (06:49)
[2023-10-24 06:50] LABS: Hematocrit 37.5 % (35-45); Hemoglobin 12.6 g/dL (11.5-14.3); Mean Corpuscular Hemoglobin 27.7 pg (27-33); Mean Corpuscular Hgb Conc 33.6 g/dL (31-36); Mean Corpuscular Volume 82.4 fL (80-97); Mean Platelet Volume 7.6 fL (7.5-11.2); Platelet Count 370 10^3/uL (150-450); Red Blood Count 4.55 10^6/uL (3.63-4.92); Red Cell Distribution Width 14.3 % (12-17); White Blood Count 16.7 10^3/uL (3.8-11.8)
[2023-10-24 06:55] LABS: Calcium 10.5 mg/dL (8.6-10.3); Creatinine, Serum 0.75 mg/dL (0.51-0.95); Magnesium 1.8 mg/dL (1.9-2.7); Potassium 3.4 mmol/L (3.5-5.0); eGFR CKD-EPI 83.5 (>60)
[2023-10-24] MEDS ORDERED: Magnesium Sulfate 2 gm BAG 2 GM/50 ML BAG IVPB ONE (07:54)
[2023-10-24] MEDS ORDERED: Aspirin EC 81 mg TAB.EC (enteric coated) PO SCH (09:00)
[2023-10-24 10:12] LABS: C Reactive Protein 18.4 mg/L (<8.01)
[2023-10-24] MEDS: Cefepime 2 GM in Dextrose 2 GM/50 ML BAG IV SCH (10:27)
[2023-10-24] MEDS ORDERED: Iodixanol (CONTRAST) 320 MG/ML 100 ML SDV IV ONE (10:45)
[2023-10-24 15:39] LABS: PCO2 Arterial 45 mmHg (35-45); PO2 Arterial 80 mmHg (80-100)
[2023-10-24] MEDS ORDERED: Potassium Chlor 20 meq TAB.ER PO ONE (17:28)
[2023-10-24] MEDS ORDERED: Potassium Chloride LIQUID 20 MEQ/15 ML LIQUID PO ONE (18:00)
[2023-10-24] MEDS ORDERED: levETIRAcetam LIQ 500 MG/5 ML UDC PO SCH (21:00)
[2023-10-24] MEDS: Enoxaparin 40 MG/0.4 ML SYR SUBCUT SCH (21:16)
[2023-10-24] MEDS: Cefepime 1 GM in Dextrose 1 GM/50 ML BAG IV SCH (22:06)
[2023-10-25] MEDS ORDERED: hydrALAZINE 20 mg/ml 1 ML Vial IV IV SLOW PU PRN (08:45)
[2023-10-25] MEDS ORDERED: Influenza vaccine *QUAD* *2023-24* 0.5 ML SYRINGE IM ONE (09:00)
[2023-10-25 09:11] LABS: ABS Eosinophils 0.3 10^3/uL (0.0-0.5); ABS Monocytes 0.7 10^3/uL (0.0-0.9); ABS Neutrophils 7.6 10^3/uL (1.5-7.6); ABS Nucleated RBC 0.01 10^3/ul; Eosinophil % 2.7 %; Hematocrit 36.8 % (35-45); Hemoglobin 12.4 g/dL (11.5-14.3); Lymphocyte % 19.1 %; Mean Corpuscular Hemoglobin 28.2 pg (27-33); Mean Corpuscular Hgb Conc 33.7 g/dL (31-36); Mean Corpuscular Volume 83.8 fL (80-97); Mean Platelet Volume 7.3 fL (7.5-11.2); Platelet Count 333 10^3/uL (150-450); Red Cell Distribution Width 14.7 % (12-17); White Blood Count 10.6 10^3/uL (3.8-11.8)
[2023-10-25 09:30] LABS: Creatinine, Serum 0.7 mg/dL (0.51-0.95); Potassium 3.9 mmol/L (3.5-5.0); eGFR CKD-EPI 90.7 (>60)
[2023-10-25] MEDS: levETIRAcetam LIQ 500 MG/5 ML UDC PEG TUBE SCH ×2 (10:21→21:05)
[2023-10-25] MEDS: Cefepime 1 GM in Dextrose 1 GM/50 ML BAG IV SCH ×2 (10:21→22:05)
[2023-10-25] MEDS: Enoxaparin 40 MG/0.4 ML SYR SUBCUT SCH (20:46)
[2023-10-25] MEDS: CMCS:Mirabegron 25 mg ER TAB (NF) PO SCH (21:05)
[2023-10-25] MEDS: Pantoprazole VIAL 40 MG VIAL IV SCH (23:27)
[2023-10-26 06:13] LABS: Albumin 3.9 g/dL (3.2-5.2); Albumin/Globulin Ratio 1.2 (1-3); Creatinine, Serum 0.65 mg/dL (0.51-0.95); Globulin 3.3 g/dL (2-4); Potassium 3.7 mmol/L (3.5-5.0); Total Bilirubin 0.5 mg/dL (0.2-1.0); Total Protein 7.2 g/dL (6.4-8.9); eGFR CKD-EPI 92.3 (>60)
[2023-10-26] MEDS: levETIRAcetam LIQ 500 MG/5 ML UDC PEG TUBE SCH ×2 (11:06→22:39)
[2023-10-26] MEDS: Cefepime 1 GM in Dextrose 1 GM/50 ML BAG IV SCH ×2 (11:12→22:56)
[2023-10-26] MEDS: CMCS:Mirabegron 25 mg ER TAB (NF) PO SCH (22:40)
[2023-10-26] MEDS: Pantoprazole VIAL 40 MG VIAL IV SCH (22:52)
[2023-10-26] MEDS: Enoxaparin 40 MG/0.4 ML SYR SUBCUT SCH (22:59)
[2023-10-27] MEDS: levETIRAcetam LIQ 500 MG/5 ML UDC PEG TUBE SCH (09:14)
[2023-10-27] MEDS: Cefepime 1 GM in Dextrose 1 GM/50 ML BAG IV SCH (09:58)
[2023-10-27 14:29] VITALS: BP 151/72
== END 2023-10-27 16:23 | disposition home or self-care (01) | DRG 698 ==
LOC: EDHOLD 16:57 → ED 16:57 → SUATTDRO 21:42 → MED 10-24 11:09 → SUATTDRO 10-24 12:00
PROVIDERS: ADMIT Student in an Organized Health Care Education/Training Program; ATTEND Hospitalist

== ENCOUNTER 2023-11-01 18:11 | Inpatient (IN) ==
[2023-11-01 19:15] LABS: ABS Basophils 0.1 10^3/uL (0.0-0.1); ABS Eosinophils 0.4 10^3/uL (0.0-0.5); ABS Lymphocytes 2.6 10^3/uL (1.0-4.8); ABS Monocytes 0.9 10^3/uL (0.0-0.9); ABS Neutrophils 8.9 10^3/uL (1.5-7.6); ABS Nucleated RBC 0.03 10^3/ul; Eosinophil % 3.3 %; Hematocrit 40.2 % (35-45); Hemoglobin 13.5 g/dL (11.5-14.3); Lymphocyte % 20.4 %; Mean Corpuscular Hemoglobin 28.2 pg (27-33); Mean Corpuscular Hgb Conc 33.6 g/dL (31-36); Mean Corpuscular Volume 83.9 fL (80-97); Mean Platelet Volume 7.5 fL (7.5-11.2); Nucleated Red Blood Cells % 0.2 %/100WBC (0.0-0.8); Platelet Count 364 10^3/uL (150-450); Red Blood Count 4.79 10^6/uL (3.63-4.92); Red Cell Distribution Width 14.5 % (12-17); White Blood Count 12.9 10^3/uL (3.8-11.8)
[2023-11-01 19:25] LABS: Activated Partial Thrombo Time 33.9 seconds (26.0-38.0); INR 1.02 (0.83-1.13)
[2023-11-01 19:36] LABS: Albumin 4.5 g/dL (3.2-5.2); Albumin/Globulin Ratio 1.2 (1-3); C Reactive Protein 9.53 mg/L (<8.01); Calcium 10.9 mg/dL (8.6-10.3); Creatinine, Serum 0.86 mg/dL (0.51-0.95); Globulin 3.8 g/dL (2-4); Potassium 3.3 mmol/L (3.5-5.0); Total Bilirubin 0.4 mg/dL (0.2-1.0); Total Protein 8.3 g/dL (6.4-8.9); eGFR CKD-EPI 70.8 (>60)
[2023-11-01 20:19] LABS: Urine Appearance Cloudy; Urine Bilirubin Negative (Negative); Urine Blood Negative (Negative); Urine Color Yellow; Urine Glucose Negative (Negative); Urine Ketones Negative (Negative); Urine Nitrite Positive (Negative); Urine Protein Negative (Negative); Urine Urobilinogen Negative (Negative)
[2023-11-01] MEDS ORDERED: Iodixanol (CONTRAST) 320 MG/ML 100 ML SDV IV ONE (20:27)
[2023-11-01 20:29] LABS: High Sensitivity Troponin 1 Hr 6 pg/mL (<15)
[2023-11-01 20:30] LABS: Urine Bacteria 1+ (Absent); Urine Red Blood Cell 1+(3-5/hpf) (Absent); Urine White Blood Cell 3+(>20/hpf) (Absent)
[2023-11-01] MEDS ORDERED: Cefepime 2 GM in Dextrose 2 GM/50 ML BAG IV ONE (21:40)
[2023-11-02] MEDS ORDERED: Lactated Ringers 1000 ml BAG 1,000 ML IV ONE (01:06)
[2023-11-02] MEDS ORDERED: NS 0.9% 500 ml BAG 500 ML IV ONE (01:07)
[2023-11-02] MEDS ORDERED: Dextrose 50% Syringe 50 ml 25 GM/50 ML SYRINGE IV PUSH PRN (01:12)
[2023-11-02] MEDS ORDERED: Enoxaparin 40 MG/0.4 ML SYR SUBCUT SCH (03:00)
[2023-11-02] MEDS: KCL 20 MEQ/100 ML IVPREMIX 20 MEQ/100 ML BAG IV SCH ×5 (05:13→17:55)
[2023-11-02] MEDS: Enoxaparin 40 MG/0.4 ML SYR SUBCUT SCH (06:30)
[2023-11-02] MEDS ORDERED: Albuterol 2.5mg/3 ml (0.083%) NEB.SOLN INH PRN (07:54)
[2023-11-02 08:07] LABS: ABS Eosinophils 0.2 10^3/uL (0.0-0.5); ABS Lymphocytes 1.7 10^3/uL (1.0-4.8); ABS Monocytes 0.7 10^3/uL (0.0-0.9); ABS Nucleated RBC 0.02 10^3/ul; Eosinophil % 1.7 %; Hematocrit 37.5 % (35-45); Hemoglobin 13.1 g/dL (11.5-14.3); Lymphocyte % 13.6 %; Mean Corpuscular Volume 82.9 fL (80-97); Mean Platelet Volume 7.6 fL (7.5-11.2); Nucleated Red Blood Cells % 0.2 %/100WBC (0.0-0.8); Platelet Count 364 10^3/uL (150-450); Red Blood Count 4.52 10^6/uL (3.63-4.92); Red Cell Distribution Width 14.8 % (12-17); White Blood Count 12.6 10^3/uL (3.8-11.8)
[2023-11-02 08:22] LABS: Calcium 10.3 mg/dL (8.6-10.3); Creatinine, Serum 0.75 mg/dL (0.51-0.95); Potassium 3.7 mmol/L (3.5-5.0); eGFR CKD-EPI 83.5 (>60)
[2023-11-02] MEDS ORDERED: Insulin GLARGINE 100 un/ml 10 ml VIAL SUBCUT SCH ×2 (09:00)
[2023-11-02 09:09] LABS: Osmolality Serum 300 mOsm/kg (275-295)
[2023-11-02] MEDS ORDERED: Cefepime 2 GM in Dextrose 2 GM/50 ML BAG IV SCH (10:00)
[2023-11-02] MEDS: Pantoprazole VIAL 40 MG VIAL IV SCH (10:22)
[2023-11-02] MEDS: Aspirin EC 81 mg TAB.EC (enteric coated) PO SCH (10:23)
[2023-11-02] MEDS: Fluticasone NASAL SPRAY 50MCG 16 gm SPRAY BTL INTRANASAL SCH (10:24)
[2023-11-02] MEDS: levETIRAcetam LIQ 500 MG/5 ML UDC PEG TUBE SCH ×2 (10:26→21:09)
[2023-11-02] MEDS ORDERED: Insulin GLARGINE 100 un/ml 10 ml VIAL SUBCUT ONE (11:39)
[2023-11-02] MEDS ORDERED: NS 0.9% 1000 ml BAG 1,000 ML IV SCH (11:45)
[2023-11-02] MEDS ORDERED: Zosyn per Pharmacy NOTE FOLLOW UP SCH (12:00)
[2023-11-02 19:13] LABS: Calcium 10.3 mg/dL (8.6-10.3); Creatinine, Serum 0.8 mg/dL (0.51-0.95); Potassium 4.1 mmol/L (3.5-5.0); eGFR CKD-EPI 77.3 (>60)
[2023-11-02] MEDS ORDERED: Piperacillin/Tazobac 3.375 BAG 3.375 GM/100 ML BAG IV ONE (20:00)
[2023-11-02] MEDS: CMCS: Mirabegron 25 mg ER TAB (NF) PO SCH (21:10)
[2023-11-03] MEDS: ZOSYN 3.375 GM Q8H per EXTENDED INFUSION IV SCH ×3 (01:47→18:28)
[2023-11-03] MEDS: Enoxaparin 40 MG/0.4 ML SYR SUBCUT SCH (06:00)
[2023-11-03 07:14] LABS: ABS Eosinophils 0.2 10^3/uL (0.0-0.5); ABS Lymphocytes 1.6 10^3/uL (1.0-4.8); ABS Monocytes 0.7 10^3/uL (0.0-0.9); ABS Neutrophils 7.9 10^3/uL (1.5-7.6); Eosinophil % 1.8 %; Hematocrit 36.6 % (35-45); Hemoglobin 12.3 g/dL (11.5-14.3); Lymphocyte % 15.1 %; Mean Corpuscular Hemoglobin 28.5 pg (27-33); Mean Corpuscular Hgb Conc 33.8 g/dL (31-36); Mean Corpuscular Volume 84.3 fL (80-97); Mean Platelet Volume 7.8 fL (7.5-11.2); Platelet Count 340 10^3/uL (150-450); Red Blood Count 4.34 10^6/uL (3.63-4.92); Red Cell Distribution Width 14.8 % (12-17); White Blood Count 10.3 10^3/uL (3.8-11.8)
[2023-11-03 07:35] LABS: Magnesium 2.1 mg/dL (1.9-2.7)
[2023-11-03] MEDS: Insulin GLARGINE 100 un/ml 10 ml VIAL SUBCUT SCH (08:35)
[2023-11-03 10:07] LABS: Calcium 10.3 mg/dL (8.6-10.3); Creatinine, Serum 0.91 mg/dL (0.51-0.95); Potassium 3.8 mmol/L (3.5-5.0); eGFR CKD-EPI 66.2 (>60)
[2023-11-03] MEDS: Pantoprazole VIAL 40 MG VIAL IV SCH (10:26)
[2023-11-03] MEDS: Aspirin EC 81 mg TAB.EC (enteric coated) PO SCH (10:27)
[2023-11-03] MEDS: Fluticasone NASAL SPRAY 50MCG 16 gm SPRAY BTL INTRANASAL SCH (10:33)
[2023-11-03] MEDS: levETIRAcetam LIQ 500 MG/5 ML UDC PEG TUBE SCH ×2 (10:33→22:17)
[2023-11-03 21:20] LABS: Urine Osmo 490 mOsm/kg (150-1150)
[2023-11-03] MEDS: CMCS: Mirabegron 25 mg ER TAB (NF) PO SCH (22:16)
[2023-11-04] MEDS: ZOSYN 3.375 GM Q8H per EXTENDED INFUSION IV SCH ×4 (01:09→22:23)
[2023-11-04] MEDS: Enoxaparin 40 MG/0.4 ML SYR SUBCUT SCH (05:33)
[2023-11-04 06:53] LABS: ABS Eosinophils 0.3 10^3/uL (0.0-0.5); ABS Lymphocytes 1.6 10^3/uL (1.0-4.8); ABS Monocytes 0.6 10^3/uL (0.0-0.9); ABS Neutrophils 7.7 10^3/uL (1.5-7.6); ABS Nucleated RBC 0.02 10^3/ul; Eosinophil % 2.6 %; Hematocrit 35.1 % (35-45); Hemoglobin 12.1 g/dL (11.5-14.3); Lymphocyte % 15.4 %; Mean Corpuscular Hemoglobin 28.9 pg (27-33); Mean Corpuscular Hgb Conc 34.4 g/dL (31-36); Mean Corpuscular Volume 84.1 fL (80-97); Mean Platelet Volume 7.5 fL (7.5-11.2); Nucleated Red Blood Cells % 0.2 %/100WBC (0.0-0.8); Platelet Count 324 10^3/uL (150-450); Red Blood Count 4.17 10^6/uL (3.63-4.92); Red Cell Distribution Width 14.6 % (12-17); White Blood Count 10.2 10^3/uL (3.8-11.8)
[2023-11-04 07:16] LABS: Calcium 10.3 mg/dL (8.6-10.3); Creatinine, Serum 0.85 mg/dL (0.51-0.95); Magnesium 2.1 mg/dL (1.9-2.7); Phosphorus 2.8 mg/dL (2.5-5.0); Potassium 3.9 mmol/L (3.5-5.0); eGFR CKD-EPI 71.8 (>60)
[2023-11-04] MEDS: Potassium Chloride LIQUID 20 MEQ/15 ML LIQUID PEG TUBE SCH (10:27)
[2023-11-04] MEDS: Insulin GLARGINE 100 un/ml 10 ml VIAL SUBCUT SCH (10:28)
[2023-11-04] MEDS: Fluticasone NASAL SPRAY 50MCG 16 gm SPRAY BTL INTRANASAL SCH (10:30)
[2023-11-04] MEDS: levETIRAcetam LIQ 500 MG/5 ML UDC PEG TUBE SCH ×2 (10:30→20:54)
[2023-11-04] MEDS: Pantoprazole VIAL 40 MG VIAL IV SCH (10:31)
[2023-11-04 18:44] LABS: Urine Appearance Clear; Urine Bilirubin Negative (Negative); Urine Blood Negative (Negative); Urine Color Yellow; Urine Glucose Negative (Negative); Urine Ketones Negative (Negative); Urine Nitrite Negative (Negative); Urine Protein 1+(30 mg/dL) (Negative); Urine Specific Gravity 1.014 (1.002-1.030); Urine Urobilinogen Negative (Negative)
[2023-11-04 20:11] LABS: Urine Bacteria Absent (Absent); Urine Red Blood Cell 1+(3-5/hpf) (Absent); Urine White Blood Cell 1+(6-10/hpf) (Absent)
[2023-11-04] MEDS: CMCS: Mirabegron 25 mg ER TAB (NF) PO SCH (20:56)
[2023-11-05] MEDS: ZOSYN 3.375 GM Q8H per EXTENDED INFUSION IV SCH ×3 (05:58→22:30)
[2023-11-05] MEDS: Enoxaparin 40 MG/0.4 ML SYR SUBCUT SCH (05:58)
[2023-11-05] MEDS: Pantoprazole VIAL 40 MG VIAL IV SCH (08:31)
[2023-11-05] MEDS: Insulin GLARGINE 100 un/ml 10 ml VIAL SUBCUT SCH (08:32)
[2023-11-05] MEDS: Fluticasone NASAL SPRAY 50MCG 16 gm SPRAY BTL INTRANASAL SCH (08:33)
[2023-11-05] MEDS: levETIRAcetam LIQ 500 MG/5 ML UDC PEG TUBE SCH (08:34)
[2023-11-05] MEDS: Potassium Chloride LIQUID 20 MEQ/15 ML LIQUID PEG TUBE SCH (08:35)
[2023-11-05 08:59] LABS: ABS Eosinophils 0.3 10^3/uL (0.0-0.5); ABS Monocytes 0.5 10^3/uL (0.0-0.9); ABS Neutrophils 7.3 10^3/uL (1.5-7.6); ABS Nucleated RBC 0.01 10^3/ul; Eosinophil % 2.8 %; Hematocrit 36.1 % (35-45); Hemoglobin 12.2 g/dL (11.5-14.3); Lymphocyte % 19.8 %; Mean Corpuscular Hemoglobin 28.5 pg (27-33); Mean Corpuscular Hgb Conc 33.8 g/dL (31-36); Mean Corpuscular Volume 84.4 fL (80-97); Mean Platelet Volume 7.4 fL (7.5-11.2); Platelet Count 308 10^3/uL (150-450); Red Blood Count 4.27 10^6/uL (3.63-4.92); Red Cell Distribution Width 14.9 % (12-17); White Blood Count 10.2 10^3/uL (3.8-11.8)
[2023-11-05 09:26] LABS: Calcium 10.3 mg/dL (8.6-10.3); Creatinine, Serum 0.73 mg/dL (0.51-0.95); Magnesium 2.1 mg/dL (1.9-2.7); Potassium 4.2 mmol/L (3.5-5.0); eGFR CKD-EPI 86.2 (>60)
[2023-11-05] MEDS ORDERED: Metoprolol Tartrate 5 mg VIAL 5 ml VIAL (1 mg/ml) IV PRN (16:35)
[2023-11-05] MEDS ORDERED: hydrALAZINE 20 mg/ml 1 ML Vial IV IV SLOW PU PRN (16:39)
[2023-11-05] MEDS ORDERED: levETIRAcetam 500 MG IVPREMIX 500 MG/100 ML BAG IV SCH (17:00)
[2023-11-05] MEDS ORDERED: Lactated Ringers 1000 ml BAG 1,000 ML IV ONE (17:13)
[2023-11-05] MEDS: levETIRAcetam 500 MG IVPREMIX 500 MG/100 ML BAG IV SCH (21:20)
[2023-11-05] MEDS: CMCS: Mirabegron 25 mg ER TAB (NF) PO SCH (21:21)
[2023-11-06] MEDS: ZOSYN 3.375 GM Q8H per EXTENDED INFUSION IV SCH ×2 (06:26→13:57)
[2023-11-06] MEDS: Enoxaparin 40 MG/0.4 ML SYR SUBCUT SCH (07:00)
[2023-11-06 08:11] LABS: ABS Eosinophils 0.2 10^3/uL (0.0-0.5); ABS Lymphocytes 1.9 10^3/uL (1.0-4.8); ABS Monocytes 0.5 10^3/uL (0.0-0.9); ABS Neutrophils 7.9 10^3/uL (1.5-7.6); ABS Nucleated RBC 0.01 10^3/ul; Eosinophil % 2.1 %; Hematocrit 36.5 % (35-45); Hemoglobin 12.4 g/dL (11.5-14.3); Lymphocyte % 17.8 %; Mean Corpuscular Hemoglobin 28.7 pg (27-33); Mean Corpuscular Hgb Conc 34.1 g/dL (31-36); Mean Corpuscular Volume 84.2 fL (80-97); Mean Platelet Volume 7.7 fL (7.5-11.2); Nucleated Red Blood Cells % 0.1 %/100WBC (0.0-0.8); Platelet Count 318 10^3/uL (150-450); Red Blood Count 4.34 10^6/uL (3.63-4.92); Red Cell Distribution Width 14.9 % (12-17); White Blood Count 10.6 10^3/uL (3.8-11.8)
[2023-11-06] MEDS ORDERED: fentaNYL 100 mcg/2 ml 50 MCG/ML VIAL ONE (08:12)
[2023-11-06 08:31] LABS: Calcium 10.2 mg/dL (8.6-10.3); Creatinine, Serum 0.72 mg/dL (0.51-0.95); Magnesium 2.1 mg/dL (1.9-2.7); Potassium 3.9 mmol/L (3.5-5.0); eGFR CKD-EPI 87.7 (>60)
[2023-11-06] MEDS: Potassium Chloride LIQUID 20 MEQ/15 ML LIQUID PEG TUBE SCH (11:27)
[2023-11-06] MEDS: Pantoprazole VIAL 40 MG VIAL IV SCH (11:27)
[2023-11-06] MEDS: Fluticasone NASAL SPRAY 50MCG 16 gm SPRAY BTL INTRANASAL SCH (11:27)
[2023-11-06] MEDS ORDERED: levETIRAcetam LIQ 500 MG/5 ML UDC PEG TUBE ONE (12:59)
[2023-11-06] MEDS: levETIRAcetam 500 MG IVPREMIX 500 MG/100 ML BAG IV SCH (13:03)
[2023-11-06] MEDS: Insulin GLARGINE 100 un/ml 10 ml VIAL SUBCUT SCH (14:00)
[2023-11-06] MEDS: Cefepime 1 GM in Dextrose 1 GM/50 ML BAG IV SCH (22:01)
[2023-11-06] MEDS: CMCS: Mirabegron 25 mg ER TAB (NF) PO SCH (22:03)
[2023-11-06] MEDS: levETIRAcetam LIQ 500 MG/5 ML UDC PEG TUBE SCH (22:03)
[2023-11-07] MEDS: Enoxaparin 40 MG/0.4 ML SYR SUBCUT SCH (05:51)
[2023-11-07 06:03] LABS: ABS Eosinophils 0.3 10^3/uL (0.0-0.5); ABS Lymphocytes 1.9 10^3/uL (1.0-4.8); ABS Monocytes 0.7 10^3/uL (0.0-0.9); ABS Neutrophils 8.5 10^3/uL (1.5-7.6); Eosinophil % 2.3 %; Hematocrit 35.7 % (35-45); Lymphocyte % 16.3 %; Mean Corpuscular Hemoglobin 28.5 pg (27-33); Mean Corpuscular Hgb Conc 33.6 g/dL (31-36); Mean Corpuscular Volume 85.1 fL (80-97); Mean Platelet Volume 7.4 fL (7.5-11.2); Platelet Count 329 10^3/uL (150-450); Red Blood Count 4.19 10^6/uL (3.63-4.92); Red Cell Distribution Width 14.7 % (12-17); White Blood Count 11.4 10^3/uL (3.8-11.8)
[2023-11-07 06:22] LABS: Calcium 10.5 mg/dL (8.6-10.3); Creatinine, Serum 0.77 mg/dL (0.51-0.95); Magnesium 2.2 mg/dL (1.9-2.7); Potassium 4.1 mmol/L (3.5-5.0); eGFR CKD-EPI 80.9 (>60)
[2023-11-07] MEDS: Insulin GLARGINE 100 un/ml 10 ml VIAL SUBCUT SCH (09:37)
[2023-11-07] MEDS: Pantoprazole VIAL 40 MG VIAL IV SCH (09:40)
[2023-11-07] MEDS: levETIRAcetam LIQ 500 MG/5 ML UDC PEG TUBE SCH ×2 (09:43→21:29)
[2023-11-07] MEDS: Potassium Chloride LIQUID 20 MEQ/15 ML LIQUID PEG TUBE SCH (09:43)
[2023-11-07] MEDS: Fluticasone NASAL SPRAY 50MCG 16 gm SPRAY BTL INTRANASAL SCH (09:43)
[2023-11-07] MEDS: Cefepime 1 GM in Dextrose 1 GM/50 ML BAG IV SCH ×2 (09:56→19:52)
[2023-11-07] MEDS: CMCS: Mirabegron 25 mg ER TAB (NF) PO SCH (21:27)
[2023-11-08] MEDS: Enoxaparin 40 MG/0.4 ML SYR SUBCUT SCH (06:08)
[2023-11-08 07:23] LABS: ABS Basophils 0.1 10^3/uL (0.0-0.1); ABS Eosinophils 0.2 10^3/uL (0.0-0.5); ABS Lymphocytes 1.7 10^3/uL (1.0-4.8); ABS Monocytes 0.6 10^3/uL (0.0-0.9); ABS Neutrophils 8.5 10^3/uL (1.5-7.6); ABS Nucleated RBC 0.01 10^3/ul; Eosinophil % 2.1 %; Hematocrit 36.1 % (35-45); Hemoglobin 11.9 g/dL (11.5-14.3); Lymphocyte % 15.5 %; Mean Corpuscular Hemoglobin 28.1 pg (27-33); Mean Corpuscular Hgb Conc 32.9 g/dL (31-36); Mean Corpuscular Volume 85.5 fL (80-97); Mean Platelet Volume 7.7 fL (7.5-11.2); Nucleated Red Blood Cells % 0.1 %/100WBC (0.0-0.8); Platelet Count 313 10^3/uL (150-450); Red Blood Count 4.22 10^6/uL (3.63-4.92); Red Cell Distribution Width 15.1 % (12-17); White Blood Count 11.1 10^3/uL (3.8-11.8)
[2023-11-08 07:41] LABS: Calcium 10.8 mg/dL (8.6-10.3); Creatinine, Serum 0.73 mg/dL (0.51-0.95); Magnesium 2.1 mg/dL (1.9-2.7); Potassium 4.3 mmol/L (3.5-5.0); eGFR CKD-EPI 86.2 (>60)
[2023-11-08] MEDS: Insulin GLARGINE 100 un/ml 10 ml VIAL SUBCUT SCH (08:52)
[2023-11-08] MEDS: Pantoprazole VIAL 40 MG VIAL IV SCH (10:20)
[2023-11-08] MEDS: Fluticasone NASAL SPRAY 50MCG 16 gm SPRAY BTL INTRANASAL SCH (10:20)
[2023-11-08] MEDS: levETIRAcetam LIQ 500 MG/5 ML UDC PEG TUBE SCH (10:20)
[2023-11-08] MEDS: Potassium Chloride LIQUID 20 MEQ/15 ML LIQUID PEG TUBE SCH (10:20)
[2023-11-08 14:51] VITALS: BP 174/63
== END 2023-11-08 16:15 | disposition home or self-care (01) | DRG 698 ==
LOC: ED 18:11 → SUATTDRO 23:25 → EDHOLD 23:25 → MEDTELE 11-02 02:06
PROVIDERS: ADMIT Student in an Organized Health Care Education/Training Program; ATTEND Internal Medicine

== ENCOUNTER 2023-11-14 16:04 | Inpatient (IN) ==
[2023-11-14] MEDS ORDERED: NS 0.9% 1000 ml BAG 1,000 ML IV ONE (16:44)
[2023-11-14 17:46] LABS: ABS Basophils 0.1 10^3/uL (0.0-0.1); ABS Eosinophils 0.3 10^3/uL (0.0-0.5); ABS Lymphocytes 2.3 10^3/uL (1.0-4.8); ABS Monocytes 0.8 10^3/uL (0.0-0.9); ABS Neutrophils 9.2 10^3/uL (1.5-7.6); ABS Nucleated RBC 0.01 10^3/ul; Eosinophil % 2.5 %; Hematocrit 38.8 % (35-45); Lymphocyte % 18.5 %; Mean Corpuscular Hemoglobin 28.2 pg (27-33); Mean Corpuscular Hgb Conc 33.6 g/dL (31-36); Mean Corpuscular Volume 84.1 fL (80-97); Nucleated Red Blood Cells % 0.1 %/100WBC (0.0-0.8); Platelet Count 341 10^3/uL (150-450); Red Blood Count 4.61 10^6/uL (3.63-4.92); White Blood Count 12.7 10^3/uL (3.8-11.8)
[2023-11-14 17:59] LABS: Activated Partial Thrombo Time 33.4 seconds (26.0-38.0); INR 0.99 (0.83-1.13)
[2023-11-14 18:05] LABS: Albumin 4.6 g/dL (3.2-5.2); Albumin/Globulin Ratio 1.3 (1-3); C Reactive Protein 12.99 mg/L (<8.01); Calcium 11.4 mg/dL (8.6-10.3); Creatinine, Serum 0.79 mg/dL (0.51-0.95); Globulin 3.5 g/dL (2-4); Potassium 3.3 mmol/L (3.5-5.0); Total Bilirubin 0.4 mg/dL (0.2-1.0); Total Protein 8.1 g/dL (6.4-8.9); eGFR CKD-EPI 78.4 (>60)
[2023-11-14 18:25] LABS: Magnesium 2.1 mg/dL (1.9-2.7)
[2023-11-14 19:04] LABS: High Sensitivity Troponin 1 Hr 5 pg/mL (<15)
[2023-11-14 19:10] LABS: Urine Appearance Clear; Urine Bilirubin Negative (Negative); Urine Blood Negative (Negative); Urine Color Straw; Urine Glucose Negative (Negative); Urine Ketones Negative (Negative); Urine Nitrite Negative (Negative); Urine Protein Negative (Negative); Urine Specific Gravity 1.004 (1.002-1.030); Urine Urobilinogen Negative (Negative)
[2023-11-14 19:15] LABS: Urine Bacteria 1+ (Absent); Urine Red Blood Cell 1+(3-5/hpf) (Absent); Urine White Blood Cell 2+(11-20/hpf) (Absent)
[2023-11-14] MEDS ORDERED: Piperacillin/Tazobac 3.375 BAG 3.375 GM/100 ML BAG IV ONE (19:37)
[2023-11-14] MEDS: Enoxaparin 40 MG/0.4 ML SYR SUBCUT SCH (22:26)
[2023-11-14] MEDS: KCL 10 MEQ/50 ML IVPREMIX 10 MEQ/50 ML BAG IV SCH (22:26)
[2023-11-15] MEDS: KCL 10 MEQ/50 ML IVPREMIX 10 MEQ/50 ML BAG IV SCH (00:02)
[2023-11-15 00:22] LABS: Phosphorus 3.8 mg/dL (2.5-5.0)
[2023-11-15] MEDS ORDERED: Albuterol 2.5mg/3 ml (0.083%) NEB.SOLN INH PRN (00:30)
[2023-11-15] MEDS ORDERED: Lactated Ringers 1000 ml BAG 1,000 ML IV ONE (00:30)
[2023-11-15] MEDS ORDERED: Zosyn per Pharmacy NOTE FOLLOW UP SCH (01:00)
[2023-11-15] MEDS ORDERED: Dextrose 50% Syringe 50 ml 25 GM/50 ML SYRINGE IV PUSH PRN (01:33)
[2023-11-15] MEDS: ZOSYN 3.375 GM Q8H per EXTENDED INFUSION IV SCH ×3 (02:03→17:28)
[2023-11-15] MEDS: Insulin GLARGINE 100 un/ml 10 ml VIAL SUBCUT SCH ×2 (02:44→21:57)
[2023-11-15] MEDS: levETIRAcetam LIQ 500 MG/5 ML UDC PO SCH ×3 (02:45→21:57)
[2023-11-15 05:04] LABS: ABS Basophils 0.1 10^3/uL (0.0-0.1); ABS Eosinophils 0.3 10^3/uL (0.0-0.5); ABS Lymphocytes 2.2 10^3/uL (1.0-4.8); ABS Monocytes 0.8 10^3/uL (0.0-0.9); ABS Neutrophils 8.2 10^3/uL (1.5-7.6); Eosinophil % 2.5 %; Hematocrit 34.1 % (35-45); Hemoglobin 11.5 g/dL (11.5-14.3); Lymphocyte % 19.2 %; Mean Corpuscular Hemoglobin 28.5 pg (27-33); Mean Corpuscular Hgb Conc 33.8 g/dL (31-36); Mean Corpuscular Volume 84.3 fL (80-97); Platelet Count 292 10^3/uL (150-450); Red Blood Count 4.04 10^6/uL (3.63-4.92); Red Cell Distribution Width 14.7 % (12-17); White Blood Count 11.6 10^3/uL (3.8-11.8)
[2023-11-15 05:41] LABS: Anion Gap 5 mmol/L (2-16); Blood Urea Nitrogen 30 mg/dL (6-24); CO2 Carbon Dioxide 32 mmol/L (22-32); Calcium 9.9 mg/dL (8.6-10.3); Chloride 102 mmol/L (101-111); Creatinine, Serum 0.68 mg/dL (0.51-0.95); Glucose 143 mg/dL (70-100); Sodium 139 mmol/L (135-145); eGFR CKD-EPI 91.3 (>60)
[2023-11-15 06:02] LABS: TSH Ultra Thyroid Stim Horm 0.43 mcIU/mL (0.34-5.60)
[2023-11-15 06:13] LABS: Vitamin B12 1173 pg/mL (180-914)
[2023-11-15 06:41] LABS: Potassium Redraw 3.6 mmol/L (3.5-5.0)
[2023-11-15] MEDS: Pantoprazole VIAL 40 MG VIAL IV SCH (10:35)
[2023-11-15] MEDS: Enoxaparin 40 MG/0.4 ML SYR SUBCUT SCH (21:57)
[2023-11-15] MEDS: CMCS: Mirabegron 25 mg ER TAB (NF) PO SCH (21:58)
[2023-11-16] MEDS: ZOSYN 3.375 GM Q8H per EXTENDED INFUSION IV SCH ×2 (01:10→11:09)
[2023-11-16 08:04] LABS: ABS Basophils 0.1 10^3/uL (0.0-0.1); ABS Eosinophils 0.2 10^3/uL (0.0-0.5); ABS Lymphocytes 1.8 10^3/uL (1.0-4.8); ABS Monocytes 0.8 10^3/uL (0.0-0.9); ABS Neutrophils 9.8 10^3/uL (1.5-7.6); Eosinophil % 1.8 %; Hematocrit 35.4 % (35-45); Hemoglobin 11.8 g/dL (11.5-14.3); Lymphocyte % 14.5 %; Mean Corpuscular Hemoglobin 28.4 pg (27-33); Mean Corpuscular Hgb Conc 33.5 g/dL (31-36); Mean Corpuscular Volume 84.9 fL (80-97); Mean Platelet Volume 7.7 fL (7.5-11.2); Platelet Count 329 10^3/uL (150-450); Red Blood Count 4.17 10^6/uL (3.63-4.92); Red Cell Distribution Width 14.6 % (12-17); White Blood Count 12.7 10^3/uL (3.8-11.8)
[2023-11-16 08:16] LABS: Calcium 10.2 mg/dL (8.6-10.3); Creatinine, Serum 0.8 mg/dL (0.51-0.95); Potassium 3.6 mmol/L (3.5-5.0); eGFR CKD-EPI 77.3 (>60)
[2023-11-16] MEDS: Pantoprazole VIAL 40 MG VIAL IV SCH (11:05)
[2023-11-16] MEDS: levETIRAcetam LIQ 500 MG/5 ML UDC PO SCH ×2 (11:08→22:15)
[2023-11-16] MEDS ORDERED: NS 0.9% IVPB ONE (17:00)
[2023-11-16] MEDS ORDERED: AMIKACIN IVPB ONE (17:00)
[2023-11-16] MEDS ORDERED: Amikacin IV 500 MG/2 ML VIAL IVPB ONE (18:00)
[2023-11-16] MEDS: Insulin GLARGINE 100 un/ml 10 ml VIAL SUBCUT SCH (20:45)
[2023-11-16] MEDS: Enoxaparin 40 MG/0.4 ML SYR SUBCUT SCH (22:13)
[2023-11-16] MEDS: CMCS: Mirabegron 25 mg ER TAB (NF) PO SCH (22:14)
[2023-11-17 06:11] LABS: ABS Eosinophils 0.3 10^3/uL (0.0-0.5); ABS Lymphocytes 2.4 10^3/uL (1.0-4.8); ABS Monocytes 0.8 10^3/uL (0.0-0.9); ABS Neutrophils 6.6 10^3/uL (1.5-7.6); ABS Nucleated RBC 0.01 10^3/ul; Hematocrit 34.8 % (35-45); Lymphocyte % 23.7 %; Mean Corpuscular Hemoglobin 29.1 pg (27-33); Mean Corpuscular Hgb Conc 34.5 g/dL (31-36); Mean Corpuscular Volume 84.3 fL (80-97); Mean Platelet Volume 7.5 fL (7.5-11.2); Nucleated Red Blood Cells % 0.1 %/100WBC (0.0-0.8); Platelet Count 307 10^3/uL (150-450); Red Blood Count 4.12 10^6/uL (3.63-4.92); Red Cell Distribution Width 14.9 % (12-17); White Blood Count 10.1 10^3/uL (3.8-11.8)
[2023-11-17 06:29] LABS: Calcium 10.2 mg/dL (8.6-10.3); Creatinine, Serum 0.71 mg/dL (0.51-0.95); Potassium 3.4 mmol/L (3.5-5.0); eGFR CKD-EPI 89.2 (>60)
[2023-11-17] MEDS ORDERED: Potassium Chloride LIQUID 20 MEQ/15 ML LIQUID PEG TUBE ONE (08:06)
[2023-11-17] MEDS: levETIRAcetam LIQ 500 MG/5 ML UDC PO SCH ×2 (09:39→20:39)
[2023-11-17] MEDS: Pantoprazole VIAL 40 MG VIAL IV SCH (09:39)
[2023-11-17] MEDS: CMCS: Mirabegron 25 mg ER TAB (NF) PO SCH (20:40)
[2023-11-17] MEDS: Insulin GLARGINE 100 un/ml 10 ml VIAL SUBCUT SCH (20:41)
[2023-11-17] MEDS: Enoxaparin 40 MG/0.4 ML SYR SUBCUT SCH (20:41)
[2023-11-18] MEDS: levETIRAcetam LIQ 500 MG/5 ML UDC PO SCH (09:37)
[2023-11-18] MEDS: Pantoprazole VIAL 40 MG VIAL IV SCH (09:38)
[2023-11-18 10:05] VITALS: BP 153/70
[2023-11-18 11:40] LABS: Creatinine, Serum 0.69 mg/dL (0.51-0.95); Potassium 3.9 mmol/L (3.5-5.0)
== END 2023-11-18 13:45 | disposition home or self-care (01) | DRG 699 ==
LOC: ED 16:04 → EDHOLD 21:55 → SUATTDRO 21:55 → MED 11-15 10:09
PROVIDERS: ADMIT Internal Medicine; ATTEND Hospitalist